=== PATIENT | male | born 1945 | race Caucasian/White ===

== ENCOUNTER 2020-08-17 07:05 | Outpatient (REF) | payer MEDICARE, OTHER, SELFPAY ==
[2020-08-17 07:53] LABS: MANUAL DIFF FLAG NO
[2020-08-17 08:09] LABS: Basophils Percent Auto 0.6 % (0-2); Eosinophils Absolute Auto 0.4 X10*3/uL (0.0-0.4); Eosinophils Percent Auto 6.3 % (0-4); Hematocrit 42.8 % (42-52); Hemoglobin 14.1 g/dl (14.0-18.0); Imm Gran Abs Auto 0.02 X10*3/uL (0.00-0.03); Imm Gran Pct Auto 0.3 % (0.0-0.4); Lymphocytes Absolute Auto 2.3 X10*3/uL (1.2-4.9); Lymphocytes Percent Auto 33.9 % (20-40); Mean Corpuscular HGB Conc 32.9 g/dl (31.0-36.0); Mean Corpuscular Hemoglobin 28.3 pg (27.0-33.0); Mean Corpuscular Volume 85.8 fL (80-98); Mean Platelet Volume 9.2 fL (9.4-12.4); Monocytes Absolute Auto 0.6 X10*3/uL (0.1-1.2); Monocytes Percent Auto 9.4 % (2-11); Neutrophils Absolute Auto 3.4 X10*3/uL (2.0-8.3); Neutrophils Percent Auto 49.5 % (45-73); Platelet Count 198 X10*3/uL (160-400); Red Blood Count 4.99 X10*6/uL (4.60-5.80); Red Cell Distribution Width 12.8 % (11.0-16.0); White Blood Count 6.8 X10*3/uL (4.8-10.8)
[2020-08-17 08:34] LABS: Alanine Aminotransferase 28 U/L (0-40); Albumin Level 4.3 g/dL (3.5-5.0); Alkaline Phosphatase 45 U/L (39-117); Anion Gap 13 (12-20); Aspartate Amino Transferase 22 U/L (5-37); Bilirubin Total 0.4 mg/dL (0.0-1.0); Blood Urea Nitrogen 53 mg/dL (9-16); Calcium 9.2 mg/dL (8.4-10.2); Carbon Dioxide 21 mmol/L (22-29); Chloride 111 mmol/L (96-108); Cholesterol 192 mg/dL; Estimated Glomerular Filt Rate 28; Glucose Fasting 101 mg/dL (60-99); HDL Cholesterol 57 mg/dL; LDL Cholesterol Calculated 94 mg/dl; Sodium 140 mmol/L (135-145); Total Protein 6.8 g/dL (6.5-8.0); Triglycerides 208 mg/dL
== END 2020-08-17 07:06 | disposition home or self-care (01) ==
LOC: HO.LAB 07:05
PROVIDERS: PCP Internal Medicine; Visit Provider Internal Medicine
DX: Z00.00 Encounter for general adult medical examination without abnormal findings (principal); E11.9 Type 2 diabetes mellitus without complications
CPT/HCPCS: 36415; 80053; 80061; 85025

== ENCOUNTER 2020-12-21 10:04 | Outpatient (REF) | payer MEDICARE, OTHER, SELFPAY ==
--- NOTE | ~2020-12-21 | US_ITS ---
EXAMINATION: US RETROPERITONEAL LIMITED (RENAL ONLY) CLINICAL INFORMATION: Chronic kidney disease, stage 3. COMPARISON: Subsequent CT abdomen/pelvis dated 12/23/2020. TECHNIQUE: Real-time imaging of the kidneys. FINDINGS: RIGHT KIDNEY: 9.2 x 5.9 x 5.2 cm (SAG x AP x TRV). The kidney is normal in size, contour, and echogenicity. Renal cortical thickness is normal. No hydronephrosis. Lower pole echogenic focus measuring 0.4 cm. No stone on the subsequent CT. This likely represents a vascular artifact. No obstructing renal stone. Simple upper pole cyst measuring 2.4 cm. Findings are not clinically significant and no follow up imaging is recommended. LEFT KIDNEY: 9.4 x 5.6 x 4.5 cm (SAG x AP x TRV). The kidney is normal in size, contour, and echogenicity. Renal cortical thickness is normal. No renal calculi or hydronephrosis. Multiple, simple cysts measuring up to 3.5 cm. The exophytic mid/upper pole cyst seen on the subsequent CT appears simple on ultrasound. Findings are not clinically significant and no follow up imaging is recommended. US/US renal BI IMPRESSION: Simple bilateral renal cysts. This includes an exophytic left upper/mid pole cyst which appears simple on ultrasound. Findings are not clinically significant and no follow up imaging is recommended. No renal stone or hydronephrosis.
[2020-12-21 11:18] LABS: Hematocrit 38.2 % (42-52); Hemoglobin 13.2 g/dl (14.0-18.0); Mean Corpuscular HGB Conc 34.6 g/dl (31.0-36.0); Mean Corpuscular Hemoglobin 28.9 pg (27.0-33.0); Mean Corpuscular Volume 83.6 fL (80-98); Mean Platelet Volume 8.5 fL (9.4-12.4); Platelet Count 243 X10*3/uL (160-400); Red Blood Count 4.57 X10*6/uL (4.60-5.80); Red Cell Distribution Width 11.9 % (11.0-16.0); White Blood Count 7.1 X10*3/uL (4.8-10.8)
[2020-12-21 12:12] LABS: Anion Gap 15 (12-20); Blood Urea Nitrogen 27 mg/dL (9-16); Calcium 9.6 mg/dL (8.4-10.2); Carbon Dioxide 20 mmol/L (22-29); Chloride 109 mmol/L (96-108); Estimated Glomerular Filt Rate 47; Glucose Random 101 mg/dL (60-115); Potassium 4.5 mmol/L (3.3-5.1); Sodium 139 mmol/L (135-145)
[2020-12-21 12:38] LABS: Cholesterol 158 mg/dL; HDL Cholesterol 50 mg/dL; LDL Cholesterol Calculated 76 mg/dl; Triglycerides 164 mg/dL
[2020-12-21 14:58] LABS: Creatinine Urine 39.98 mg/dL; Total Protein Urine Random < 7 mg/dL (<12)
[2020-12-22 16:46] LABS: Calcium (PTHI) 9.6 mg/dL (8.6-10.3); PTHI 40 pg/mL (14-64)
== END 2020-12-21 10:05 | disposition home or self-care (01) ==
LOC: HO.US 10:04
PROVIDERS: PCP Internal Medicine; Visit Provider Internal Medicine Hypertension Specialist
DX: N18.31 Chronic kidney disease, stage 3a (principal); E11.22 Type 2 diabetes mellitus with diabetic chronic kidney disease
CPT/HCPCS: 36415; 76775; 80048; 80061; 83970; 84156; 85027

== ENCOUNTER 2020-12-23 15:56 | Emergency (ER) | payer MEDICARE, OTHER, SELFPAY ==
--- NOTE | ~2020-12-23 | CT_ITS ---
EXAMINATION: CT ABDOMEN AND PELVIS WITHOUT CONTRAST CLINICAL INFORMATION: Abdominal pain, bloody diarrhea. COMPARISON: No similar priors. TECHNIQUE: Multidetector volumetric imaging was performed from the superior aspect of the liver through the pubic symphysis. Sagittal and coronal reformatted images were obtained on the technologist's workstation. This CT examination was performed using dose optimization techniques as appropriate, variously including the following: *Automated exposure control *Adjustment of mA and/or kV according to patient size (this includes techniques or standardized protocols for targeted exams where dose is matched to indication/reason for exam; i.e. extremities or head) *Use of iterative reconstruction technique DLP: 416 mGy-cm FINDINGS: LUNG BASES: Scarring adjacent to the major fissure within the right middle lobe (image 5 of series 4). No focal consolidation or pleural effusion. LIVER, GALLBLADDER, AND BILIARY TREE: The liver is normal in size, shape, and attenuation. No focal hepatic lesion or biliary ductal dilatation is present. The gallbladder is unremarkable with no evidence of radiopaque gallstones, gallbladder wall thickening, or obvious pericholecystic inflammatory changes. PANCREAS: Unremarkable. SPLEEN: Unremarkable. ADRENAL GLANDS: Unremarkable. KIDNEYS AND URETERS: The kidneys are normal in size, shape and attenuation. There are multiple bilateral simple appearing cysts, for instance the largest in the upper pole of the right kidney measuring up to 2.2 cm and in the mid to lower pole of left kidney measuring up to 3.6 cm. Exophytically from the anterior surface of the upper pole of the left kidney there is a homogeneously hyperattenuating lesion measuring up to 1 cm (image 29 of series 3) which is almost certainly account representative of a cyst with proteinaceous/hemorrhagic debris. There is mild bilateral perinephric fat stranding with perirenal fat hypertrophy. No nephrolithiasis or hydronephrosis. Renal vascular calcifications are identified. BLADDER: Unremarkable. GASTROINTESTINAL TRACT: Small hiatal hernia. The stomach and the small bowel are nondilated. Normal appendix. There is wall thickening and inflammatory changes in the sigmoid colon around several diverticuli, most consistent with acute diverticulitis. No free air or drainable collection. No bowel obstruction. ABDOMINAL WALL: Tiny fat-containing umbilical and bilateral inguinal hernias. LYMPH NODES: No lymphadenopathy by size criteria. There are a few tiny retroperitoneal nodules measuring up to 4 mm (images 39 and 41 of series 3) of uncertain significance. VASCULAR: Scattered atherosclerotic disease of the abdominal aorta and its branches. The infrarenal abdominal aorta measures up to 2.3 cm in maximum diameter. PELVIC VISCERA: The prostate is mildly enlarged. OSSEOUS STRUCTURES: No acute or aggressive osseous abnormalities. Multilevel thoracolumbar spondylosis. CT/CT abdomen pelvis wo con IMPRESSION: Acute uncomplicated sigmoid diverticulitis. No nephrolithiasis or hydronephrosis. In the upper pole of the left kidney there is a homogeneously hyperattenuating exophytic lesion measuring 1 cm which is almost certainly a simple cyst with proteinaceous/hemorrhagic content. However, to definitely ensure its benign etiology, recommend interval imaging to ensure stability. There are multiple other simple renal cysts which do not require further workup.
[2020-12-23 16:13] VITALS: BP 150/69; PULSE 88; RESP 18; TEMP 36.8; O2SAT 95; BMI 25.0
[2020-12-23 19:11] LABS: MANUAL DIFF FLAG NO
[2020-12-23 19:13] LABS: Basophils Percent Auto 0.3 % (0-2); Eosinophils Absolute Auto 0.1 X10*3/uL (0.0-0.4); Eosinophils Percent Auto 0.6 % (0-4); Hematocrit 40.9 % (42-52); Hemoglobin 14.1 g/dl (14.0-18.0); Imm Gran Abs Auto 0.03 X10*3/uL (0.00-0.03); Imm Gran Pct Auto 0.3 % (0.0-0.4); Lymphocytes Absolute Auto 2.2 X10*3/uL (1.2-4.9); Lymphocytes Percent Auto 21.3 % (20-40); Mean Corpuscular HGB Conc 34.5 g/dl (31.0-36.0); Mean Corpuscular Hemoglobin 28.9 pg (27.0-33.0); Mean Corpuscular Volume 83.8 fL (80-98); Mean Platelet Volume 8.8 fL (9.4-12.4); Monocytes Absolute Auto 0.9 X10*3/uL (0.1-1.2); Monocytes Percent Auto 8.2 % (2-11); Neutrophils Absolute Auto 7.2 X10*3/uL (2.0-8.3); Neutrophils Percent Auto 69.3 % (45-73); Platelet Count 269 X10*3/uL (160-400); Red Blood Count 4.88 X10*6/uL (4.60-5.80); White Blood Count 10.4 X10*3/uL (4.8-10.8)
--- NOTE | 2020-12-23 19:24 | ED_ITS ---
HPI - General Adult General Chief complaint: General Medical Stated complaint: Blood in stool Time Seen by Provider: 12/23/20 19:23 History of Present Illness HPI narrative: Patient is 75 years old with a history of having multiple episodes of diarrhea. Patient's initial diarrhea was brown in color. The last set of 3 episodes patient noted small amount of blood. Patient from home. S saida arrival in the emergency department 3 hours ago patient is not having any diarrhea anymore. No fever no chills. No abdominal pain. No history of abdominal surgery. No chest pain. Positive nausea associated with the symptoms. No cough no congestion or upper respiratory symptoms. Patient from home. Received his coronavirus vaccine. No history of diverticulitis. No history of being on Motrin or Aleve. No NSAIDs. No alcohol use. No new medication. Not on blood thinners. Related Data Home Medications Medication Instructions Recorded Confirmed aspirin 81 mg tablet,delayed 81 mg PO DAILY 12/30/19 09/01/20 release (Adult Low Dose Aspirin) omega-3 fatty acids 1,000 mg 1,000 mg PO DAILY 12/30/19 09/01/20 capsule ranitidine HCl 150 mg tablet 150 mg PO BID 12/30/19 09/01/20 Previous Rx's Medication Instructions Recorded cholestyramine (with sugar) 4 gram 4 g PO DAILY #180 ea 01/18/20 powder for susp in a packet cimetidine 200 mg tablet 200 mg PO BID #180 tab 08/09/20 metoprolol succinate 25 mg 25 mg PO DAILY #90 tab 08/09/20 tablet,extended release 24 hr amlodipine 5 mg tablet 5 mg PO DAILY #90 tab 08/30/20 rosuvastatin 20 mg tablet 30 mg PO DAILY #90 tab 09/07/20 lisinopril 20 1 tab PO BID #180 tab 12/05/20 mg-hydrochlorothiazide 12.5 mg tablet amoxicillin 875 mg-potassium 1 tab PO BID 10 Days #20 tab 12/23/20 clavulanate 125 mg tablet (Augmentin) ondansetron HCl 4 mg tablet 4 mg PO Q8H PRN #10 tab 12/23/20 (Zofran) Allergies Allergy/AdvReac Type Severity Reaction Status Date / Time ezetimibe [Zetia] AdvReac Unknown muscle pain Verified 12/23/20 16:13 niacin AdvReac Unknown flushing Verified 12/23/20 16:13 Review of Systems Review of Systems: No fever no chills no cough no congestion or Upper respiratory symptoms no diaphoresis All systems reviewed otherwise negative PMFSH Past Medical History Medical History (Updated 12/23/20 @ 21:20 by Fauzia Molina MD) COVID-19 Hyperlipidemia Hypertension Surgical History H/O carotid endarterectomy Family History Family History Father Heart problem Mother Heart problem Brother No problems noted. Son No problems noted. Daughter No problems noted. Daughter No problems noted. Daughter No problems noted. Social History Social History Housing: House Alcohol intake: current Alcohol intake frequency: a few times a week Patient Tobacco Use Status: Former Tobacco user Tobacco use type: Cigarette Second Hand Smoke Exposure: No Advance Directives: No Advance Directives Information Provided: No service: No Current occupational status: retired Physical Exam Vital Signs: Vital Signs: Last Vital Signs Temp 98.2 F 12/23/20 20:01 Pulse 81 12/23/20 20:01 Resp 15 12/23/20 20:01 BP 130/72 12/23/20 20:01 Pulse Ox 96 12/23/20 20:01 Body Mass Index 25.0 Appearance: Alert. Oriented X3. No acute distress. Eyes: Pupils equal, round and reactive to light. ENT: Pharynx normal. Neck: Normal inspection. Neck supple. No lymph nodes noted. No crepitus CVS: Normal heart rate and rhythm. Pulses normal. Normal S1 and S2 Respiratory: No respiratory distress. Breath sounds normal. No Wheezing. No rales Abdomen: Soft and nontender. No rigidity. No distention. good BS x4 Rectal exam mucus only. Skin: Skin warm and dry. Normal skin color. Normal skin turgor. Extremities: No lower extremity edema. Neurovascular intact to all extremities. No Lacerations. No Rash Neuro: Oriented X 3. No motor deficit. No sensory deficit. Moving all extermities. No slurred speech Medical Decision Making MDM Narrative Medical decision making narrative: Well-appearing not acute distress. Patient's abdomen is soft nontender. Will check electrolytes. CT scan of the abdomen ordered. CT scan of the abdomen positive for having a left renal cyst. Also evidence for mild diverticulitis. There is no abscess no perforation. Will start patient on Augmentin. Have patient follow-up on an outpatient basis. Currently in stable condition. Patient's white count is 10.4. Hemoglobin is 14. BUN and creatinine is baseline at 26 and 1.76. In stable condition. Lab Data Lab results reviewed: Yes I reviewed the patient's lab results. Result diagrams: 12/23/20 18:58 12/23/20 18:58 Labs: Lab Results 12/23/20 12/23/20 12/23/20 Range/Units 18:58 18:58 20:28 WBC 10.4 (4.8-10.8) X10*3/uL RBC 4.88 (4.60-5.80) X10*6/uL Hgb 14.1 (14.0-18.0) g/dl Hct 40.9 L (42-52) % MCV 83.8 (80-98) fL MCH 28.9 (27.0-33.0) pg MCHC 34.5 (31.0-36.0) g/dl RDW 12.0 (11.0-16.0) % Plt Count 269 (160-400) X10*3/uL MPV 8.8 L (9.4-12.4) fL Immature Gran % (Auto) 0.3 (0.0-0.4) % Neut % (Auto) 69.3 (45-73) % Lymph % (Auto) 21.3 (20-40) % Campbell % (Auto) 8.2 (2-11) % Eos % (Auto) 0.6 (0-4) % Baso % (Auto) 0.3 (0-2) % Lymph # (Auto) 2.2 (1.2-4.9) X10*3/uL Campbell # (Auto) 0.9 (0.1-1.2) X10*3/uL Eos # (Auto) 0.1 (0.0-0.4) X10*3/uL Baso # (Auto) 0.0 (0.0-0.2) X10*3/uL Abs Immat Gran (auto) 0.03 (0.00-0.03) X10*3/uL Absolute Neuts (auto) 7.2 (2.0-8.3) X10*3/uL Absolute Nucleated RBC 0.000 (0.0-0.012) X10*3/uL Nucleated RBC % (auto) 0.0 (0.0-0.2) /100WBC Sodium 141 (135-145) mmol/L Potassium 4.3 (3.3-5.1) mmol/L Chloride 110 H (96-108) mmol/L Carbon Dioxide 20 L (22-29) mmol/L Anion Gap 15 (12-20) BUN 26 H (9-16) mg/dL Creatinine 1.76 H (0.5-1.4) mg/dL Estim Creat Clear Calc 34.5 Estimated GFR 38 Random Glucose 105 (60-115) mg/dL Calcium 9.7 (8.4-10.2) mg/dL Total Bilirubin 0.8 (0.0-1.0) mg/dL Direct Bilirubin 0.2 (0.0-0.5) mg/dL AST 16 (5-37) U/L ALT 33 (0-40) U/L Alkaline Phosphatase 48 (39-117) U/L Total Protein 7.5 (6.5-8.0) g/dL Albumin 4.7 (3.5-5.0) g/dL Lipase 31 (8-78) U/L Stool Occult Blood POSITIVE (NEGATIVE) Discharge Plan Discharge Clinical Impression: Renal cyst, Diverticulitis Patient Disposition: Home, Self-Care Instructions: Diverticulitis (ED), Diverticulitis Diet (ED), Kidney Cyst (ED) Additional Instructions: A possible kidney cyst versus mass was noted on your CT scan. Please closely follow-up with your doctor on outpatient basis. Small risk of malignancy still exists. Prescriptions: New amoxicillin-pot clavulanate [Augmentin] 875-125 mg tablet 1 tab PO BID 10 Days Qty: 20 RF: 0 ondansetron HCl [Zofran] 4 mg tablet 4 mg PO Q8H PRN (Reason: nausea and vomiting) Qty: 10 RF: 0 No Action cholestyramine (with sugar) 4 gram powder in packet 4 g PO DAILY Qty: 180 RF: 8 metoprolol succinate 25 mg tablet extended release 24 hr 25 mg PO DAILY Qty: 90 RF: 8 cimetidine 200 mg tablet 200 mg PO BID Qty: 180 RF: 8 amlodipine 5 mg tablet 5 mg PO DAILY Qty: 90 RF: 8 rosuvastatin 20 mg tablet 30 mg PO DAILY Qty: 90 RF: 8 lisinopril-hydrochlorothiazide 20-12.5 mg tablet 1 tab PO BID Qty: 180 RF: 8 ranitidine HCl 150 mg tablet 150 mg PO BID RF: 0 omega-3 fatty acids 1,000 mg capsule 1,000 mg PO DAILY RF: 0 aspirin [Adult Low Dose Aspirin] 81 mg tablet,delayed release (DR/EC) 81 mg PO DAILY RF: 0 Referrals: Fransisco Hodges MD [Primary Care Provider] - 2 days
[2020-12-23 19:25] LABS: Anion Gap 15 (12-20); Blood Urea Nitrogen 26 mg/dL (9-16); Calcium 9.7 mg/dL (8.4-10.2); Carbon Dioxide 20 mmol/L (22-29); Chloride 110 mmol/L (96-108); Creatinine Clr Calc Pharmacy 34.5; Estimated Glomerular Filt Rate 38; Glucose Random 105 mg/dL (60-115); Potassium 4.3 mmol/L (3.3-5.1); Sodium 141 mmol/L (135-145)
[2020-12-23 19:44] LABS: Alanine Aminotransferase 33 U/L (0-40); Albumin Level 4.7 g/dL (3.5-5.0); Alkaline Phosphatase 48 U/L (39-117); Aspartate Amino Transferase 16 U/L (5-37); Bilirubin Direct 0.2 mg/dL (0.0-0.5); Bilirubin Total 0.8 mg/dL (0.0-1.0); Lipase 31 U/L (8-78); Total Protein 7.5 g/dL (6.5-8.0)
[2020-12-23 20:01] VITALS: BP 130/72; PULSE 81; RESP 15; TEMP 36.8; O2SAT 96
[2020-12-23] MEDS: 0.9 % Sodium Chloride 1,000 ML 999 ML IV (20:06)
[2020-12-23 20:38] LABS: OBS Int Ctl Valid YES; OBS1 POSITIVE (NEGATIVE)
--- NOTE | 2020-12-23 21:29 | PC.NURSE ---
Pt alert and oriented x4, calm and cooperative. Pt denies pain. Pt educated on results and discharge teaching. Pt and stated an understanding. Pt states ready for dc. Pt ambulated and steady on his feet. IV removed. Vitals stable.
[2020-12-23] MEDS: Amoxicillin/Potassium Clav 875 MG TABLET PO (21:39)
== END 2020-12-23 21:43 | disposition home or self-care (01) ==
PROVIDERS: Emergency Provider Emergency Medicine Emergency Medical Services; PCP Internal Medicine
DX: K57.32 Diverticulitis of large intestine without perforation or abscess without bleeding (principal); N28.1 Cyst of kidney, acquired; Z87.891 Personal history of nicotine dependence; Z71.6 Tobacco abuse counseling; Z79.899 Other long term (current) drug therapy
CPT/HCPCS: 36415; 74176; 80048; 80076; 82272; 83690; 85025; 96360; 99284

== ENCOUNTER 2021-04-04 07:42 | Outpatient (REF) | payer MEDICARE, OTHER, SELFPAY ==
[2021-04-04 07:57] LABS: MANUAL DIFF FLAG NO
[2021-04-04 08:39] LABS: Basophils Percent Auto 0.6 % (0-2); Eosinophils Absolute Auto 0.4 X10*3/uL (0.0-0.4); Eosinophils Percent Auto 5.7 % (0-4); Hematocrit 43.2 % (42.0-52.0); Hemoglobin 14.3 g/dl (14.0-18.0); Imm Gran Abs Auto 0.02 X10*3/uL (0.00-0.03); Imm Gran Pct Auto 0.3 % (0.0-0.4); Lymphocytes Absolute Auto 2.4 X10*3/uL (1.2-4.9); Lymphocytes Percent Auto 36.9 % (20-40); Mean Corpuscular HGB Conc 33.1 g/dl (31.0-36.0); Mean Corpuscular Hemoglobin 28.5 pg (27.0-33.0); Mean Corpuscular Volume 86.2 fL (80.0-98.0); Mean Platelet Volume 9.1 fL (9.4-12.4); Monocytes Absolute Auto 0.6 X10*3/uL (0.1-1.2); Monocytes Percent Auto 9.4 % (2-11); Neutrophils Absolute Auto 3.1 x10*3/uL (2.0-8.3); Neutrophils Percent Auto 47.1 % (45-73); Platelet Count 221 X10*3/uL (160-400); Red Blood Count 5.01 X10*6/uL (4.60-5.80); Red Cell Distribution Width 12.5 % (11.0-16.0); White Blood Count 6.5 X10*3/uL (4.8-10.8)
[2021-04-04 09:01] LABS: Anion Gap 13 (12-20); Blood Urea Nitrogen 35 mg/dL (9-16); Calcium 9.5 mg/dL (8.4-10.2); Carbon Dioxide 25 mmol/L (22-29); Chloride 108 mmol/L (96-108); Estimated Glomerular Filt Rate 37; Potassium 4.2 mmol/L (3.3-5.1); Sodium 142 mmol/L (135-145)
== END 2021-04-04 07:43 | disposition home or self-care (01) ==
LOC: HO.LAB 07:42
PROVIDERS: PCP Internal Medicine; Visit Provider Internal Medicine Hypertension Specialist
DX: N18.32 Chronic kidney disease, stage 3b (principal)
CPT/HCPCS: 36415; 80051; 82310; 82565; 84520; 85025

== ENCOUNTER 2021-08-18 07:15 | Outpatient (REF) | payer MEDICARE, OTHER, SELFPAY ==
[2021-08-18 08:42] LABS: Anion Gap 15 (12-20); Blood Urea Nitrogen 37 mg/dL (9-16); Calcium 9.3 mg/dL (8.4-10.2); Carbon Dioxide 21 mmol/L (22-29); Chloride 110 mmol/L (96-108); Creatinine Clr Calc Pharmacy 31.5; Estimated Glomerular Filt Rate 35; Potassium 4.9 mmol/L (3.3-5.1); Sodium 141 mmol/L (135-145)
== END 2021-08-18 07:16 | disposition home or self-care (01) ==
LOC: HO.LAB 07:15
PROVIDERS: Absent Provider Internal Medicine Hypertension Specialist; PCP Internal Medicine; Visit Provider Internal Medicine
DX: I12.9 Hypertensive chronic kidney disease with stage 1 through stage 4 chronic kidney disease, or unspecified chronic kidney disease (principal); N18.9 Chronic kidney disease, unspecified
CPT/HCPCS: 36415; 80051; 82310; 82565; 84100; 84520

== ENCOUNTER 2021-12-28 07:00 | Outpatient (REF) | payer MEDICARE, OTHER, SELFPAY ==
[2021-12-28 09:52] LABS: Cholesterol 181 mg/dL; HDL Cholesterol 59 mg/dL; LDL Cholesterol Calculated 89 mg/dl; Triglycerides 168 mg/dL
[2021-12-28 15:31] LABS: Hematocrit 39.2 % (42.0-52.0); Hemoglobin 13.7 g/dl (14.0-18.0); Mean Corpuscular HGB Conc 34.9 g/dl (31.0-36.0); Mean Corpuscular Hemoglobin 29.5 pg (27.0-33.0); Mean Corpuscular Volume 84.3 fL (80.0-98.0); Platelet Count 208 X10*3/uL (160-400); Red Blood Count 4.65 X10*6/uL (4.60-5.80); Red Cell Distribution Width 12.3 % (11.0-16.0); White Blood Count 7.6 X10*3/uL (4.8-10.8)
[2021-12-28 15:59] LABS: Creatinine Urine 55.97 mg/dL; Microalbum/Creatinine Ratio Ur 33.9 ug/mg cr
[2021-12-28 16:02] LABS: Alanine Aminotransferase 30 U/L (0-40); Albumin Level 4.4 g/dL (3.5-5.0); Alkaline Phosphatase 44 U/L (39-117); Anion Gap 16 (12-20); Aspartate Amino Transferase 22 U/L (5-37); Bilirubin Total 0.5 mg/dL (0.0-1.0); Blood Urea Nitrogen 29 mg/dL (9-16); Carbon Dioxide 21 mmol/L (22-29); Chloride 108 mmol/L (96-108); Estimated Glomerular Filt Rate 40; Glucose Random 111 mg/dL (60-115); Potassium 4.4 mmol/L (3.3-5.1); Sodium 141 mmol/L (135-145); Total Protein 6.8 g/dL (6.5-8.0)
== END 2021-12-28 07:01 | disposition home or self-care (01) ==
LOC: HO.LAB 07:00
PROVIDERS: Absent Provider Internal Medicine Hypertension Specialist; PCP Internal Medicine; Visit Provider Internal Medicine
DX: E78.5 Hyperlipidemia, unspecified (principal); N18.32 Chronic kidney disease, stage 3b
CPT/HCPCS: 36415; 80053; 80061; 82043; 85027

== ENCOUNTER 2022-07-13 08:33 | Outpatient (REF) | payer MEDICARE, OTHER, SELFPAY ==
[2022-07-13 09:53] LABS: Anion Gap 15 (12-20); Blood Urea Nitrogen 39 mg/dL (9-16); Carbon Dioxide 21 mmol/L (22-29); Chloride 111 mmol/L (96-108); Cholesterol 169 mg/dL; Estimated Glomerular Filt Rate 36; Glucose Random 96 mg/dL (60-115); HDL Cholesterol 53 mg/dL; LDL Cholesterol Calculated 87 mg/dl; Potassium 4.5 mmol/L (3.3-5.1); Sodium 142 mmol/L (135-145); Triglycerides 148 mg/dL
== END 2022-07-13 08:34 | disposition home or self-care (01) ==
LOC: HO.LAB 08:33
PROVIDERS: Internal Medicine Hypertension Specialist; Visit Provider Internal Medicine
DX: E78.5 Hyperlipidemia, unspecified (principal); N18.32 Chronic kidney disease, stage 3b
CPT/HCPCS: 36415; 80048; 80061

== ENCOUNTER 2022-11-24 08:15 | Outpatient (REF) | payer MEDICARE, OTHER, SELFPAY ==
[2022-11-24 09:29] LABS: Cholesterol 183 mg/dL (<200); HDL Cholesterol 59 mg/dL (>40); LDL Cholesterol Calculated 91 mg/dL (<100); Triglycerides 168 mg/dL (<150)
== END 2022-11-24 08:16 | disposition home or self-care (01) ==
LOC: HO.LAB 08:15
PROVIDERS: PCP Internal Medicine; Visit Provider Internal Medicine
DX: E78.5 Hyperlipidemia, unspecified (principal)
CPT/HCPCS: 36415; 80061

== ENCOUNTER 2022-11-28 12:44 | Outpatient (AMB) | payer MEDICARE, OTHER, SELFPAY ==
[2022-11-28 12:46] VITALS: BP 142/60; PULSE 55; O2SAT 97; BMI 25.4
--- NOTE | 2022-11-28 12:46 | A.OFFPC_ITS ---
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 Accompanied by: Self / Same As Patient Allergies ezetimibe [Zetia] Adverse Reaction (Unknown, Verified 11/28/22 12:46) muscle pain niacin Adverse Reaction (Unknown, Verified 11/28/22 12:46) flushing Medication List - Last Reconciled 11/28/22 by Fransisco Hodges MD amlodipine 5 mg PO DAILY aspirin (Adult Low Dose Aspirin) 81 mg PO DAILY cholestyramine (with sugar) 4 gram 4 grams PO DAILY cimetidine 200 mg PO BID lisinopril-hydrochlorothiazide 20-12.5 mg 1 tab PO BID metoprolol succinate ER 25 mg PO DAILY omega-3 fatty acids 1,000 mg PO DAILY ranitidine HCl 150 mg PO BID rosuvastatin 30 mg (1.5 x 20 mg) PO DAILY Tobacco use date assessed: 04/09/22 Fall risk assessment: No Falls in past year Last assessed Fall Risk: 11/28/22 Dental Screening Dental Screen Date: 11/28/22 Did you have a dental visit in the last 12 months?: No Did you have a dental problem in the last 6 months where you did not have access to dental care?: No Was dental information given to patient?: Patient has dentist HPI 4mth f/u HPI Details HTN and hyperlip on rx; doing well; compliant [facility] Medical History COVID-19 Hypertension Hyperlipidemia Surgical History H/O carotid endarterectomy Family History Father Heart problem Mother Heart problem Brother No problems noted. Son No problems noted. Daughter No problems noted. Daughter No problems noted. Daughter No problems noted. Social History Housing: House Alcohol intake: current Alcohol intake frequency: a few times a week Patient Tobacco Use Status: Former Tobacco user Tobacco use type: Cigarette e-Cigarette/Vaping Use: Never Used Second Hand Smoke Exposure: No service: No Current occupational status: retired Cognitive needs: No Hearing needs: No Vision needs: Yes (reading glasses) Questionnaire PHQ-9 Over the last 2 weeks, how often have you been bothered by any of the following problems? 1. Little interest or pleasure in doing things: not at all 2. Feeling down, depressed, or hopeless: not at all 3. Trouble falling or staying asleep, or sleeping too much: not at all 4. Feeling tired or having little energy: not at all 5. Poor appetite or overeating: not at all 6. Feeling bad about yourself - or that you are a failure or have let yourself or your family down: not at all 7. Trouble concentrating on things, such as reading the newspaper or watching television: not at all 8. Moving or speaking so slowly that other people could have noticed. Or the opposite - being so fidgety or restless that you have been moving around a lot more than usual: not at all 9. Thoughts that you would be better off or of hurting yourself in some way: not at all Total score: 0 Depression Screening Interpretation: Negative 41497 - PHQ-9 Billing: Yes Source: Developed by Drs. Denys Suero, Francia Shelton, Robinson Phillips and colleagues, with an educational ramiro from [employer]. Thrive Questionnaire Date Thrive assessed: 08/01/22 AUDIT C Alcohol Use Questionnaire (AUDIT-C) Score Reviewed/Action Taken: Yes GRACE-7 AMB Questionnaire GRACE-7 Date GRACE - 7 assessed: 08/01/22 Source: Developed by Drs. Denys Suero, Robinson Johnson and colleagues, with an educational ramiro from [employer]. Review of Systems Const Denies chills, Denies headache(s) and Denies weight loss ENT Denies headache(s) Card Denies chest pain, Denies syncope, Denies irregular heart rhythm and Denies dyspnea Resp Denies chest congestion, Denies cough and Denies dyspnea GI Denies abdominal pain, Denies change in stool character, Denies nausea and Denies vomiting Musc Denies deformity and Denies joint swelling Neuro Denies syncope and Denies headache(s) Physical exam (Primary Care) Vital Signs: Last Vital Signs Pulse 55 11/28/22 12:46 BP 142/60 H 11/28/22 12:46 Pulse Ox 97 11/28/22 12:46 Oxygen Delivery Method Room Air 11/28/22 12:46 BMI result Body Mass Index 25.4 Tobacco/Smoking Status: Tobacco use Status Tobacco use date assessed 04/09/22 11/28/22 12:50 Patient Tobacco Use Status Former Tobacco user 11/28/22 12:50 Tobacco use type Cigarette 11/28/22 12:50 e-Cigarette/Vaping Use Never Used 11/28/22 12:50 PHQ-9: PHQ-9 Score PHQ-9: Total score 0 11/28/22 12:50 Depression Screening Interpretation: Negative Thrive Assessment: Date of Thrive Assessment Date Thrive assessed 08/01/22 11/28/22 12:50 Const General: cooperative, comfortable, no acute distress and alert Neck Neck: Yes no lymphadenopathy Thyroid: Thyroid normal Resp Effort & Inspection: normal respiratory effort Auscultation: clear to auscultation bilaterally Percussion: percussion normal Cardio Jugular venous distension: no JVD Palpation: normal PMI Rate: regular rate Rhythm: regular rhythm Heart sounds: S1 normal heart sound present and S2 normal heart sound present GI Inspection: Yes normal to inspection Palpation (GI): No hepatosplenomegaly present Skin General skin exam: no rashes or lesions noted Extrem General: Yes no clubbing, cyanosis or edema Assessment and Plan Assessment & Plan (1) Hypertension: Code(s): I10 - Essential (primary) hypertension Plan: stable; same rx (2) Hyperlipidemia: Code(s): E78.5 - Hyperlipidemia, unspecified Plan: stable; same rx Orders: Orders Comprehensive [place]. Panel Fast Today N28.9 - Disorder of kidney and ureter, unspecified Lipid Panel Today E78.5 - Hyperlipidemia, unspecified Complete Blood Count Auto Diff Today D64.9 - Anemia, unspecified Coding Level of Care Code Est Pt Level 3 (30690) Diagnoses Hypertension I10 Hyperlipidemia E78.5
== END 2022-11-28 12:58 | disposition home or self-care (01) ==
PROVIDERS: PCP Internal Medicine; Visit Provider Internal Medicine
DX: I10 Essential (primary) hypertension (principal); E78.5 Hyperlipidemia, unspecified
CPT/HCPCS: 99213

== ENCOUNTER 2023-01-23 08:03 | Outpatient (REF) | payer MEDICARE, OTHER, SELFPAY ==
[2023-01-23 10:55] LABS: Anion Gap 14 (12-20); Blood Urea Nitrogen 30 mg/dL (9-16); Calcium 9.2 mg/dL (8.4-10.2); Carbon Dioxide 25 mmol/L (22-29); Chloride 108 mmol/L (96-108); Estimated Glomerular Filt Rate 39; Glucose Random 89 mg/dL (60-115); Potassium 4.5 mmol/L (3.3-5.1); Sodium 142 mmol/L (135-145)
[2023-01-23 11:07] LABS: Creatinine Urine 107.78 mg/dL; Total Protein Urine Random < 7 mg/dL (<12)
[2023-01-25 15:13] LABS: Calcium (PTHI) 8.9 mg/dL (8.6-10.3); PTHI 50 pg/mL (16-77)
== END 2023-01-23 08:04 | disposition home or self-care (01) ==
LOC: HO.LAB 08:03
PROVIDERS: PCP Internal Medicine; Visit Provider Internal Medicine Hypertension Specialist
DX: I12.9 Hypertensive chronic kidney disease with stage 1 through stage 4 chronic kidney disease, or unspecified chronic kidney disease (principal); N18.32 Chronic kidney disease, stage 3b
CPT/HCPCS: 36415; 80048; 82570; 83970; 84156

== ENCOUNTER 2023-05-27 07:26 | Outpatient (REF) | payer MEDICARE, OTHER, SELFPAY ==
[2023-05-27 07:35] LABS: MANUAL DIFF FLAG NO
[2023-05-27 08:03] LABS: Basophils Percent Auto 0.5 % (0-2); Eosinophils Absolute Auto 0.3 X10*3/uL (0.0-0.4); Eosinophils Percent Auto 4.6 % (0-4); Hematocrit 43.3 % (42.0-52.0); Hemoglobin 14.9 g/dl (14.0-18.0); Imm Gran Abs Auto 0.02 X10*3/uL (0.00-0.03); Imm Gran Pct Auto 0.3 % (0.0-0.4); Lymphocytes Absolute Auto 2.6 X10*3/uL (1.2-4.9); Lymphocytes Percent Auto 35.9 % (20-40); Mean Corpuscular HGB Conc 34.4 g/dl (31.0-36.0); Mean Corpuscular Hemoglobin 29.2 pg (27.0-33.0); Mean Corpuscular Volume 84.9 fL (80.0-98.0); Mean Platelet Volume 8.8 fL (9.4-12.4); Monocytes Absolute Auto 0.7 X10*3/uL (0.1-1.2); Monocytes Percent Auto 9.6 % (2-11); Neutrophils Absolute Auto 3.6 x10*3/uL (2.0-8.3); Neutrophils Percent Auto 49.1 % (45-73); Platelet Count 204 X10*3/uL (160-400); Red Cell Distribution Width 12.5 % (11.0-16.0); White Blood Count 7.4 X10*3/uL (4.8-10.8)
[2023-05-27 08:36] LABS: Alanine Aminotransferase 31 U/L (0-40); Albumin Level 4.5 g/dL (3.5-5.0); Alkaline Phosphatase 44 U/L (39-117); Anion Gap 15 (12-20); Aspartate Amino Transferase 21 U/L (5-37); Bilirubin Total 0.5 mg/dL (0.0-1.0); Blood Urea Nitrogen 40 mg/dL (9-16); Calcium 9.5 mg/dL (8.4-10.2); Carbon Dioxide 24 mmol/L (22-29); Chloride 109 mmol/L (96-108); Cholesterol 183 mg/dL (<200); Estimated Glomerular Filt Rate 29; Glucose Fasting 98 mg/dL (60-99); HDL Cholesterol 49 mg/dL (>40); LDL Cholesterol Calculated 87 mg/dL (<100); Sodium 144 mmol/L (135-145); Total Protein 7.5 g/dL (6.5-8.0); Triglycerides 236 mg/dL (<150)
== END 2023-05-27 07:27 | disposition home or self-care (01) ==
LOC: HO.LAB 07:26
PROVIDERS: PCP Internal Medicine; Visit Provider Internal Medicine
DX: E78.5 Hyperlipidemia, unspecified (principal); N28.9 Disorder of kidney and ureter, unspecified; D64.9 Anemia, unspecified
CPT/HCPCS: 36415; 80053; 80061; 85025

== ENCOUNTER 2023-05-29 08:31 | Outpatient (AMB) | payer MEDICARE, OTHER, SELFPAY ==
[2023-05-29 08:42] VITALS: BP 150/82; PULSE 60; O2SAT 95; BMI 25.5
--- NOTE | 2023-05-29 08:42 | A.OFFPC_ITS ---
Vital Signs 05/29/23 08:42 Height 5 ft 8 in Weight 168 lb BMI 25.5 BP 150/82 H Blood Pressure Location Lt brachial Position Sitting Pulse 60 Pulse Source Pulse Oximeter Pulse Oximetry (%) 95 Oxygen Delivery Method Room Air Intake Visit Reasons: 6mth f/u Front End Alignment Specialist Required: No [employer] Supervisor: Not Required per policy Accompanied by: Self / Same As Patient Allergies ezetimibe [Zetia] Adverse Reaction (Unknown, Verified 05/29/23 08:42) muscle pain niacin Adverse Reaction (Unknown, Verified 05/29/23 08:42) flushing Medication List - Last Reconciled 05/29/23 by Fransisco Hodges MD amlodipine 5 mg PO DAILY aspirin (Adult Low Dose Aspirin) 81 mg PO DAILY cholestyramine (with sugar) 4 gram 4 grams PO DAILY cimetidine 200 mg PO BID lisinopril-hydrochlorothiazide 20-12.5 mg 1 tab PO BID metoprolol succinate ER 25 mg PO DAILY omega-3 fatty acids 1,000 mg PO DAILY ranitidine HCl 150 mg PO BID rosuvastatin 30 mg (1.5 x 20 mg) PO DAILY Tobacco use date assessed: 05/29/23 Fall risk assessment: No Falls in past year Last assessed Fall Risk: 05/29/23 Dental Screening Dental Screen Date: 05/29/23 Did you have a dental visit in the last 12 months?: No Did you have a dental problem in the last 6 months where you did not have access to dental care?: No Was dental information given to patient?: Patient has dentist HPI 6mth f/u HPI Details HTN on Rx; doing well; compliant [facility] Medical History COVID-19 Hypertension Hyperlipidemia Surgical History H/O carotid endarterectomy Family History Father Heart problem Mother Heart problem Brother No problems noted. Son No problems noted. Daughter No problems noted. Daughter No problems noted. Daughter No problems noted. Social History Housing: House Alcohol intake: current Alcohol intake frequency: a few times a week Patient Tobacco Use Status: Former Tobacco user Tobacco use type: Cigarette e-Cigarette/Vaping Use: Never Used Second Hand Smoke Exposure: No service: No Current occupational status: retired Cognitive needs: No Hearing needs: No Vision needs: Yes (reading glasses) Questionnaire PHQ-9 Over the last 2 weeks, how often have you been bothered by any of the following problems? 1. Little interest or pleasure in doing things: not at all 2. Feeling down, depressed, or hopeless: not at all 3. Trouble falling or staying asleep, or sleeping too much: not at all 4. Feeling tired or having little energy: not at all 5. Poor appetite or overeating: not at all 6. Feeling bad about yourself - or that you are a failure or have let yourself or your family down: not at all 7. Trouble concentrating on things, such as reading the newspaper or watching television: not at all 8. Moving or speaking so slowly that other people could have noticed. Or the opposite - being so fidgety or restless that you have been moving around a lot more than usual: not at all 9. Thoughts that you would be better off or of hurting yourself in some way: not at all Total score: 0 Depression Screening Interpretation: Negative Depression Screening Done: Yes 43111 - PHQ-9 Billing: Yes Source: Developed by Drs. Denys Suero, Francia Shelton, Robinson Phillips and colleagues, with an educational ramiro from [employer]. Thrive Questionnaire Date Thrive assessed: 05/29/23 I am a: Patient What is your living situation today?: I have a steady place to live Within the past 12 months, did the food you bought not last and you didn't have the money to get more?: Never true Within the past 12 months, did you worry whether your food would run out before you got money to buy more?: Never true Do you have trouble paying for medicines?: No Do you have trouble getting transportation to medical appointments?: No Do you have trouble paying your heating and electricity bill?: No Do you have trouble taking care of your child, family member or friend?: No Do you have trouble with day-to-day activities such as bathing, preparing meals, shopping, managing finances, etc.?: No Are you currently unemployed and looking for a job?: No Are you interested in more education?: No Please select the resources that you would like help with: None THRIVE Score: 0 AUDIT C Alcohol Use Questionnaire (AUDIT-C) 1. How often do you have a drink containing alcohol?: Never Total Score: 0 Score Reviewed/Action Taken: Yes GRACE-7 AMB Questionnaire GRACE-7 Date GRACE - 7 assessed: 05/29/23 Feeling nervous, anxious, or on edge: 0 = Not at all Not being able to stop or control worryin = Not at all Worrying too much about different things: 0 = Not at all Trouble relaxin = Not at all Being so restless that it is hard to sit still: 0 = Not at all Becoming easily annoyed or irritable: 0 = Not at all Feeling afraid as if something awful might happen: 0 = Not at all Total GRACE-7 score (0-4 normal; 5-9 mild; 10-14 moderate; 15-21 severe): 0 Source: Developed by Drs. Denys Suero, Francia Shelton, Robinson Phillips and colleagues, with an educational ramiro from [employer]. Review of Systems Const Denies chills, Denies headache(s) and Denies weight loss ENT Denies headache(s) Card Denies chest pain, Denies syncope, Denies irregular heart rhythm and Denies dyspnea Resp Denies chest congestion, Denies cough and Denies dyspnea GI Denies abdominal pain, Denies change in stool character, Denies nausea and Denies vomiting Musc Denies deformity and Denies joint swelling Neuro Denies syncope and Denies headache(s) Physical exam (Primary Care) Vital Signs: Last Vital Signs Pulse 60 05/29/23 08:42 BP 150/82 H 05/29/23 08:42 Pulse Ox 95 05/29/23 08:42 Oxygen Delivery Method Room Air 05/29/23 08:42 BMI result Body Mass Index 25.5 Tobacco/Smoking Status: Tobacco use Status Tobacco use date assessed 05/29/23 05/29/23 08:43 Patient Tobacco Use Status Former Tobacco user 05/29/23 08:43 Tobacco use type Cigarette 05/29/23 08:43 e-Cigarette/Vaping Use Never Used 03/20/24 08:43 PHQ-9: PHQ-9 Score PHQ-9: Total score 0 05/29/23 08:49 Depression Screening Interpretation: Negative Thrive Assessment: Date of Thrive Assessment Date Thrive assessed 05/29/23 05/29/23 08:43 Const General: cooperative, comfortable, no acute distress and alert Neck Neck: Yes no lymphadenopathy Thyroid: Thyroid normal Resp Effort & Inspection: normal respiratory effort Auscultation: clear to auscultation bilaterally Percussion: percussion normal Cardio Jugular venous distension: no JVD Palpation: normal PMI Rate: regular rate Rhythm: regular rhythm Heart sounds: S1 normal heart sound present and S2 normal heart sound present GI Inspection: Yes normal to inspection Palpation (GI): No hepatosplenomegaly present Skin General skin exam: no rashes or lesions noted Extrem General: Yes no clubbing, cyanosis or edema Assessment and Plan Assessment & Plan (1) Hypertension: Code(s): I10 - Essential (primary) hypertension Plan: stable; same rx Orders: Orders Lipid Panel Today E78.5 - Hyperlipidemia, unspecified Coding Level of Care Code Est Pt Level 3 (29850) Diagnoses Hypertension I10
== END 2023-05-29 09:13 | disposition home or self-care (01) ==
PROVIDERS: PCP Internal Medicine; Visit Provider Internal Medicine
DX: I10 Essential (primary) hypertension (principal)
CPT/HCPCS: 99213

== ENCOUNTER 2023-09-25 07:17 | Outpatient (REF) | payer MEDICARE, OTHER, SELFPAY ==
[2023-09-25 07:45] LABS: MANUAL DIFF FLAG NO
[2023-09-25 08:57] LABS: Basophils Percent Auto 0.5 % (0-2); Eosinophils Absolute Auto 0.3 X10*3/uL (0.0-0.4); Eosinophils Percent Auto 4.4 % (0-4); Hematocrit 43.1 % (42.0-52.0); Hemoglobin 14.4 g/dl (14.0-18.0); Imm Gran Abs Auto 0.02 X10*3/uL (0.00-0.03); Imm Gran Pct Auto 0.3 % (0.0-0.4); Mean Corpuscular HGB Conc 33.4 g/dl (31.0-36.0); Mean Corpuscular Hemoglobin 28.7 pg (27.0-33.0); Mean Corpuscular Volume 85.9 fL (80.0-98.0); Mean Platelet Volume 9.4 fL (9.4-12.4); Monocytes Absolute Auto 0.6 X10*3/uL (0.1-1.2); Monocytes Percent Auto 9.4 % (2-11); Neutrophils Absolute Auto 3.3 x10*3/uL (2.0-8.3); Neutrophils Percent Auto 53.4 % (45-73); Platelet Count 194 X10*3/uL (160-400); Red Blood Count 5.02 X10*6/uL (4.60-5.80); Red Cell Distribution Width 12.6 % (11.0-16.0); White Blood Count 6.2 X10*3/uL (4.8-10.8)
[2023-09-25 09:42] LABS: Albumin Level 4.5 g/dL (3.5-5.0); Anion Gap 13 (12-20); Blood Urea Nitrogen 58 mg/dL (9-16); Calcium 9.5 mg/dL (8.4-10.2); Carbon Dioxide 22 mmol/L (22-29); Chloride 111 mmol/L (96-108); Estimated Glomerular Filt Rate 24; Magnesium 2.6 mg/dL (1.6-2.6); Potassium 4.4 mmol/L (3.3-5.1); Sodium 142 mmol/L (135-145); Vitamin D 25-OH Total 28.4 ng/mL (>30)
[2023-09-25 10:02] LABS: Microalbum/Creatinine Ratio Ur 15.9 ug/mg cr (<30); Protein/Creatinine Ratio, Ur 0.07 (<0.2); Total Protein Urine Random 19 mg/dL (<12)
[2023-09-25 10:37] LABS: Appearance Urine Clear; Color Urine Yellow; Glucose Urine UA Negative (Negative); Leukocyte Esterase Urine Negative (Negative); Nitrite Urine Negative (Negative); Urine Blood Negative (Negative); Urine Ketones Negative (Negative); Urine Protein Trace mg/dL (Neg-Trace)
[2023-09-25 12:53] LABS: Parathyroid Hormone Intact 131.2 pg/mL (8.7-77.1)
== END 2023-09-25 07:18 | disposition home or self-care (01) ==
LOC: HO.LAB 07:17
PROVIDERS: PCP Internal Medicine; Visit Provider Internal Medicine Nephrology
DX: N18.32 Chronic kidney disease, stage 3b (principal); N18.9 Chronic kidney disease, unspecified; I12.9 Hypertensive chronic kidney disease with stage 1 through stage 4 chronic kidney disease, or unspecified chronic kidney disease
CPT/HCPCS: 36415; 80051; 81003; 82040; 82043; 82306; 82310; 82565; 82570; 83735; 83970; 84100; 84156; 84520; 85025

== ENCOUNTER 2023-10-02 08:33 | Outpatient (AMB) | payer MEDICARE, OTHER, SELFPAY ==
[2023-10-02 08:43] VITALS: BP 140/70; PULSE 56; O2SAT 96; BMI 24.9
--- NOTE | 2023-10-02 08:43 | MHC.PC.OV ---
Vital Signs 10/02/23 08:43 Height 5 ft 8 in Weight 164 lb BMI 24.9 BP 140/70 H Blood Pressure Location Lt brachial Position Sitting Pulse 56 Pulse Source Pulse Oximeter Pulse Oximetry (%) 96 Oxygen Delivery Method Room Air Intake Visit Reasons: 4mth f/u Family Law Legal Assistant: Not Required per policy Accompanied by: Self / Same As Patient Allergies ezetimibe [Zetia] Adverse Reaction (Unknown, Verified 10/02/23 08:43) muscle pain niacin Adverse Reaction (Unknown, Verified 10/02/23 08:43) flushing Medication List - Last Reconciled 10/02/23 by Fransisco Hodges MD amlodipine 5 mg PO DAILY aspirin (Adult Low Dose Aspirin) 81 mg PO DAILY cholestyramine (with sugar) 4 gram 4 grams PO DAILY cimetidine 200 mg PO BID lisinopril-hydrochlorothiazide 20-12.5 mg 1 tab PO BID metoprolol succinate ER 25 mg PO DAILY omega-3 fatty acids 1,000 mg PO DAILY ranitidine HCl 150 mg PO BID rosuvastatin 30 mg (1.5 x 20 mg) PO DAILY Tobacco use date assessed: 05/29/23 Fall risk assessment: No Falls in past year Last assessed Fall Risk: 10/02/23 Dental Screening Dental Screen Date: 05/29/23 HPI 4mth f/u HPI Details hypertension on rx; doing well; compliant [facility] Medical History COVID-19 Hypertension Hyperlipidemia Surgical History H/O carotid endarterectomy Family History Father Heart problem Mother Heart problem Brother No problems noted. Son No problems noted. Daughter No problems noted. Daughter No problems noted. Daughter No problems noted. Social History Housing: House Alcohol intake: current Alcohol intake frequency: a few times a week Patient Tobacco Use Status: Former Tobacco user Tobacco use type: Cigarette e-Cigarette/Vaping Use: Never Used Second Hand Smoke Exposure: No service: No Current occupational status: retired Cognitive needs: No Hearing needs: No Vision needs: Yes (reading glasses) Questionnaire Thrive Questionnaire Date Thrive assessed: 05/29/23 GRACE-7 AMB Questionnaire GRACE-7 Date GRACE - 7 assessed: 05/29/23 Source: Developed by Drs. Denys Suero, Francia Shelton, Robinson Phillips and colleagues, with an educational ramiro from [employer]. Review of Systems Const Denies chills, Denies headache(s) and Denies weight loss ENT Denies headache(s) Card Denies chest pain, Denies syncope, Denies irregular heart rhythm and Denies dyspnea Resp Denies chest congestion, Denies cough and Denies dyspnea GI Denies abdominal pain, Denies change in stool character, Denies nausea and Denies vomiting Musc Denies deformity and Denies joint swelling Neuro Denies syncope and Denies headache(s) Physical exam (Primary Care) Vital Signs: Last Vital Signs Pulse 56 10/02/23 08:43 BP 140/70 H 10/02/23 08:43 Pulse Ox 96 10/02/23 08:43 Oxygen Delivery Method Room Air 10/02/23 08:43 BMI result Body Mass Index 24.9 Tobacco/Smoking Status: Tobacco use Status Tobacco use date assessed 05/29/23 10/02/23 08:46 Patient Tobacco Use Status Former Tobacco user 10/02/23 08:46 Tobacco use type Cigarette 10/02/23 08:46 e-Cigarette/Vaping Use Never Used 10/02/23 08:46 Thrive Assessment: Date of Thrive Assessment Date Thrive assessed 05/29/23 10/02/23 08:46 Const General: cooperative, comfortable, no acute distress and alert Neck Neck: Yes no lymphadenopathy Thyroid: Thyroid normal Resp Effort & Inspection: normal respiratory effort Auscultation: clear to auscultation bilaterally Percussion: percussion normal Cardio Jugular venous distension: no JVD Palpation: normal PMI Rate: regular rate Rhythm: regular rhythm Heart sounds: S1 normal heart sound present and S2 normal heart sound present GI Inspection: Yes normal to inspection Palpation (GI): No hepatosplenomegaly present Skin General skin exam: no rashes or lesions noted Extrem General: Yes no clubbing, cyanosis or edema Assessment and Plan Assessment & Plan (1) Hypertension: Code(s): I10 - Essential (primary) hypertension Plan: stable; same rx Orders: Orders US carotid duplex BI Today I65.29 - Occlusion and stenosis of unspecified carotid artery Coding Level of Care Code Est Pt Level 3 (81640) Diagnoses Hypertension I10
== END 2023-10-02 09:05 | disposition home or self-care (01) ==
PROVIDERS: PCP Internal Medicine; Visit Provider Internal Medicine
DX: I10 Essential (primary) hypertension (principal)
CPT/HCPCS: 99213

== ENCOUNTER 2023-11-06 11:32 | Outpatient (REF) | payer MEDICARE, OTHER, SELFPAY ==
[2023-11-06 13:02] LABS: Anion Gap 13 (12-20); Blood Urea Nitrogen 36 mg/dL (9-16); Calcium 9.7 mg/dL (8.4-10.2); Carbon Dioxide 23 mmol/L (22-29); Chloride 110 mmol/L (96-108); Estimated Glomerular Filt Rate 34; Potassium 4.9 mmol/L (3.3-5.1); Sodium 141 mmol/L (135-145)
[2023-11-06 14:07] LABS: Appearance Urine Clear; Color Urine Yellow; Glucose Urine UA Negative (Negative); Leukocyte Esterase Urine Negative (Negative); Nitrite Urine Negative (Negative); Specific Gravity - Urine <= 1.005 (1.005-1.025); Urine Blood Negative (Negative); Urine Ketones Negative (Negative); Urine Protein Negative (Neg-Trace)
[2023-11-06 14:53] LABS: Creatinine Urine 31.33 mg/dL; Microalbum/Creatinine Ratio Ur 35.1 ug/mg cr (<30); Total Protein Urine Random < 7 mg/dL (<12)
== END 2023-11-06 11:33 | disposition home or self-care (01) ==
LOC: HO.LAB 11:32
PROVIDERS: PCP Internal Medicine; Visit Provider Internal Medicine Nephrology
DX: I12.9 Hypertensive chronic kidney disease with stage 1 through stage 4 chronic kidney disease, or unspecified chronic kidney disease (principal); N18.4 Chronic kidney disease, stage 4 (severe)
CPT/HCPCS: 36415; 80051; 81003; 82043; 82310; 82565; 82570; 84156; 84520

== ENCOUNTER 2023-11-13 09:45 | Outpatient (REF) | payer MEDICARE, OTHER, SELFPAY ==
--- NOTE | ~2023-11-13 | US_ITS ---
EXAMINATION: US EXTRACRANIAL CAROTID DUPLEX, BILATERAL CLINICAL INFORMATION: Occlusion and stenosis of bilateral carotid arteries. History of right CEA. COMPARISON: 12/10/2014 TECHNIQUE: Real-time ultrasound and Doppler techniques (integrating B-mode 2-D vascular images, Doppler spectral analysis and color-flow Doppler imaging) were utilized to interrogate the extracranial carotid arteries, the vertebral arteries and proximal subclavian arteries bilaterally. The degree of stenosis is determined by criteria similar to NASCET. FINDINGS: Right Side: 1. There is mild atherosclerotic plaque seen in the bifurcation/proximal ICA region. 2. The common carotid artery PSV proximally is 120 cm/s and distally 86 cm/s. 3. The proximal internal carotid artery velocities are 101 cm/s systolic and 27 cm/s diastolic. 4. The proximal external carotid artery PSV is 72 cm/s. 5. The vertebral artery shows antegrade flow. 6. The subclavian artery waveforms are biphasic. Left Side: 1. There is mild atherosclerotic plaque seen in the bifurcation/proximal ICA region. 2. The common carotid artery PSV proximally is 151 cm/s and distally 73 cm/s. 3. The proximal internal carotid artery velocities are 66 cm/s systolic and 13 cm/s diastolic. 4. The proximal external carotid artery PSV is 77 cm/s. 5. The vertebral artery shows antegrade flow. 6. The subclavian artery waveforms are biphasic. US/US carotid duplex BI IMPRESSION: 1. RIGHT: Minimal, nonhemodynamically significant stenosis of the proximal right internal carotid artery corresponding to a 0-49% stenosis by velocity criteria. 2. LEFT: Minimal, nonhemodynamically significant stenosis of the proximal left internal carotid artery corresponding to a 0-49% stenosis by velocity criteria. 3. No significant change from previous exam 12/10/2014. Electronically signed by: Kan Huang MD 11/14/2023 08:06 AM EDT
== END 2023-11-13 09:46 | disposition home or self-care (01) ==
LOC: HO.US 09:45
PROVIDERS: PCP Internal Medicine; Visit Provider Internal Medicine
DX: I65.23 Occlusion and stenosis of bilateral carotid arteries (principal)
CPT/HCPCS: 93880

== ENCOUNTER 2024-02-28 08:14 | Outpatient (AMB) | payer MEDICARE, OTHER, SELFPAY ==
--- NOTE | 2024-02-28 08:16 | MHC.PC.OV ---
Vital Signs 02/28/24 08:17 Height 5 ft 8 in Weight 165 lb 4 oz BMI 25.1 BP 138/82 Blood Pressure Location Rt brachial Position Sitting Pulse 63 Pulse Source Pulse Oximeter Pulse Oximetry (%) 98 Oxygen Delivery Method Room Air Intake Visit Reasons: OFFICE VISIT Allergies ezetimibe [Zetia] Adverse Reaction (Unknown, Verified 02/28/24 08:19) muscle pain niacin Adverse Reaction (Unknown, Verified 02/28/24 08:19) flushing Medication List - Last Reconciled 02/28/24 by Fransisco Hodges MD amlodipine 5 mg PO DAILY aspirin (Adult Low Dose Aspirin) 81 mg PO DAILY cholestyramine (with sugar) 4 gram 4 grams PO DAILY cimetidine 200 mg PO BID lisinopril-hydrochlorothiazide 20-12.5 mg 1 tab PO BID metoprolol succinate ER 25 mg PO DAILY omega-3 fatty acids 1,000 mg PO DAILY ranitidine HCl 150 mg PO BID rosuvastatin 30 mg (1.5 x 20 mg) PO DAILY Tobacco use date assessed: 02/28/24 Fall risk assessment: No Falls in past year Last assessed Fall Risk: 02/28/24 Dental Screening Dental Screen Date: 02/28/24 Did you have a dental visit in the last 12 months?: No Did you have a dental problem in the last 6 months where you did not have access to dental care?: No Was dental information given to patient?: Patient declined HPI OFFICE VISIT HPI Details HTN on Rx; doing well and compliant [facility] Medical History COVID-19 Hypertension Hyperlipidemia Surgical History H/O carotid endarterectomy Family History Father Heart problem Mother Heart problem Brother No problems noted. Son No problems noted. Daughter No problems noted. Daughter No problems noted. Daughter No problems noted. Social History Housing: House Alcohol intake: current Alcohol intake frequency: a few times a week Patient Tobacco Use Status: Former Tobacco user Tobacco use type: Cigarette e-Cigarette/Vaping Use: Never Used Second Hand Smoke Exposure: No service: No Current occupational status: retired Cognitive needs: No Hearing needs: No Vision needs: Yes (reading glasses) Questionnaire PHQ-9 Over the last 2 weeks, how often have you been bothered by any of the following problems? 1. Little interest or pleasure in doing things: not at all 2. Feeling down, depressed, or hopeless: not at all 3. Trouble falling or staying asleep, or sleeping too much: not at all 4. Feeling tired or having little energy: not at all 5. Poor appetite or overeating: not at all 6. Feeling bad about yourself - or that you are a failure or have let yourself or your family down: not at all 7. Trouble concentrating on things, such as reading the newspaper or watching television: not at all 8. Moving or speaking so slowly that other people could have noticed. Or the opposite - being so fidgety or restless that you have been moving around a lot more than usual: not at all 9. Thoughts that you would be better off or of hurting yourself in some way: not at all Total score: 0 Depression Screening Interpretation: Negative Depression Screening Done: Yes 93009 - PHQ-9 Billing: Yes Source: Developed by Drs. Denys Suero, Francia Shelton, Robinson Phillips and colleagues, with an educational ramiro from [employer]. Thrive Questionnaire Date Thrive assessed: 02/28/24 I am a: Patient What is your living situation today?: I have a steady place to live Within the past 12 months, did the food you bought not last and you didn't have the money to get more?: Never true Within the past 12 months, did you worry whether your food would run out before you got money to buy more?: Never true Do you have trouble paying for medicines?: No Do you have trouble getting transportation to medical appointments?: No Do you have trouble paying your heating and electricity bill?: No Do you have trouble taking care of your child, family member or friend?: No Do you have trouble with day-to-day activities such as bathing, preparing meals, shopping, managing finances, etc.?: No Are you currently unemployed and looking for a job?: No Are you interested in more education?: No Please select the resources that you would like help with: None THRIVE Score: 0 AUDIT C Alcohol Use Questionnaire (AUDIT-C) 1. How often do you have a drink containing alcohol?: 2-3 times a week 2. How many drinks containing alcohol do you have on a typical day when you are drinking?: 1 or 2 3. How often do you have six or more drinks on one occasion?: Never Total Score: 3 Score Reviewed/Action Taken: Yes GRACE-7 AMB Questionnaire GRACE-7 Date GRACE - 7 assessed: 05/29/23 Feeling nervous, anxious, or on edge: 0 = Not at all Not being able to stop or control worryin = Not at all Worrying too much about different things: 0 = Not at all Trouble relaxin = Not at all Being so restless that it is hard to sit still: 0 = Not at all Becoming easily annoyed or irritable: 0 = Not at all Feeling afraid as if something awful might happen: 0 = Not at all Total GRACE-7 score (0-4 normal; 5-9 mild; 10-14 moderate; 15-21 severe): 0 Source: Developed by Drs. Denys Suero, Francia Shelton, Robinson Phillips and colleagues, with an educational ramiro from [employer]. Review of Systems Const Denies chills, Denies headache(s) and Denies weight loss ENT Denies headache(s) Card Denies chest pain, Denies syncope, Denies irregular heart rhythm and Denies dyspnea Resp Denies chest congestion, Denies cough and Denies dyspnea GI Denies abdominal pain, Denies change in stool character, Denies nausea and Denies vomiting Musc Denies deformity and Denies joint swelling Neuro Denies syncope and Denies headache(s) Physical exam (Primary Care) Vital Signs: Last Vital Signs Pulse 63 02/28/24 08:17 BP 138/82 02/28/24 08:17 Pulse Ox 98 02/28/24 08:17 Oxygen Delivery Method Room Air 02/28/24 08:17 BMI result Body Mass Index 25.1 Tobacco/Smoking Status: Tobacco use Status Tobacco use date assessed 02/28/24 02/28/24 08:21 Patient Tobacco Use Status Former Tobacco user 02/28/24 08:17 Tobacco use type Cigarette 02/28/24 08:17 e-Cigarette/Vaping Use Never Used 02/28/24 08:17 PHQ-9: PHQ-9 Score PHQ-9: Total score 0 02/28/24 08:21 Depression Screening Interpretation: Negative Thrive Assessment: Date of Thrive Assessment Date Thrive assessed 02/28/24 02/28/24 08:21 Const General: cooperative, comfortable, no acute distress and alert Neck Neck: Yes no lymphadenopathy Thyroid: Thyroid normal Resp Effort & Inspection: normal respiratory effort Auscultation: clear to auscultation bilaterally Percussion: percussion normal Cardio Jugular venous distension: no JVD Palpation: normal PMI Rate: regular rate Rhythm: regular rhythm Heart sounds: S1 normal heart sound present and S2 normal heart sound present GI Inspection: Yes normal to inspection Palpation (GI): No hepatosplenomegaly present Skin General skin exam: no rashes or lesions noted Extrem General: Yes no clubbing, cyanosis or edema Coding Level of Care Code Est Pt Level 3 (05505) Diagnoses Hypertension I10 Additional Codes PHQ-9 - 32377 - PHQ-9 Billing: Yes ([id number]) Assessment & Plan Assessment & Plan (1) Hypertension: Code(s): I10 - Essential (primary) hypertension Category: Medical Plan: stable; same rx
[2024-02-28 08:17] VITALS: BP 138/82; PULSE 63; O2SAT 98; BMI 25.1
== END 2024-02-28 08:48 | disposition home or self-care (01) ==
PROVIDERS: PCP Internal Medicine; Visit Provider Internal Medicine
DX: I10 Essential (primary) hypertension (principal)

== ENCOUNTER → 2024-02-28 08:14 | Outpatient (BNVA) | payer MEDICARE, OTHER, SELFPAY | PROVIDERS: PCP Internal Medicine; Visit Provider Internal Medicine | DX: I10 Essential (primary) hypertension (principal) | CPT/HCPCS: 96127; 99212 ==

== ENCOUNTER 2024-05-19 11:52 | Outpatient (REF) | payer MEDICARE, OTHER, SELFPAY ==
[2024-05-19 12:42] LABS: Appearance Urine Clear; Color Urine Yellow; Glucose Urine UA Negative (Negative); Leukocyte Esterase Urine Negative (Negative); Nitrite Urine Negative (Negative); Urine Blood Negative (Negative); Urine Ketones Negative (Negative); Urine Protein Negative (Neg-Trace)
[2024-05-19 12:59] LABS: Anion Gap 13 (12-20); Calcium 9.3 mg/dL (8.4-10.2); Carbon Dioxide 19 mmol/L (22-29); Chloride 113 mmol/L (96-108); Estimated Glomerular Filt Rate 38; Potassium 4.4 mmol/L (3.3-5.1); Sodium 141 mmol/L (135-145)
[2024-05-19 13:01] LABS: Creatinine Urine 95.21 mg/dL; Microalbum/Creatinine Ratio Ur 32.5 ug/mg cr (<30); Protein/Creatinine Ratio, Ur 0.08 (<0.2); Total Protein Urine Random 8 mg/dL (<12)
--- OUTSIDE RECORDS SUMMARY | 2024-05-19 14:40 | XMS_ITS | Encounter Summary ---
Author Organization [facility] Address [address] [address] Phone Care Team Providers Care Metal Molder Name Role Phone Fransisco Hodges MD Primary Care Provider [phone] Encounter Details Date Type Department Care Team (Late Contact Info) Description 05/19/2024 Orders Only [facility] [address] [address] Anthony Catalan MD [address] [address] Social History Tobacco Use Types Packs/Day Years Used Date Smoking Tobacco: Former Smokeless Tobacco: Former Alcohol Use Standard Drinks/Week Comments Yes 0 (1 standard drink = 0.6 oz pur e alcohol) Sex and Gender Information Value Date Recorded Sex Assigned at Not on file Legal Sex Male 11:18 AM EDT Gender Identity Not on file Sexual Orientation Not on file documented as of this encounter Plan of Treatment Upcoming Encounters Date Type Department Care Team (Late Contact Info) Description 05/25/2024 3:45 PM EDT Office Visit [facility] [address] [place] [address] Anthony Catalan MD [address] [address] documented as of this encounter Procedures Procedure Name Priority Date/Time Associated Diagnosis Comments PROTEIN / CREATININE RATIO, URINE Routine 05/19/2024 12:30 PM EDT ALBUMIN, URINE, RANDOM Routine 05/19/2024 12:30 PM EDT URINALYSIS Routine 05/19/2024 12:30 PM EDT CREATININE, BLOOD Routine 05/19/2024 12: 06 PM EDT CALCIUM Routine 05/19/2024 12:06 PM EDT ELECTROLYTE PANEL Routine 05/19/2024 12: 06 PM EDT documented in this encounter Results * Protein, Total, Random Urine w/Creatinine (Protein/Creat Ratio) (05/19/2024 12:30 PM EDT) Protein Urine Random 8 <12 mg/dL See order comments Protein/Creatin ine Ratio, Urine 0.08 <0.2 See order comments Comment: The spot urine protein:creatinine ratio may increase to 0.3 during normal . 05/19/2024 12:3 0 PM EDT 05/19/2024 12:30 PM EDT us Anthony Catalan MD LAB URINE ORDERABLES Final Re sult [place] See order comments [place] [address] * (ABNORMAL) Albumin, urine, random (05/19/2024 12:30 PM EDT) Creatinine, Urine 95.21 mg/dL Se e order comments Urine Microalbumin 31.0 mg/L See order comments Microalbumin/Crea tinine Ratio 32.5(H) <30 ug/mg cr See order comments Comment: ?Albumin/Creatinine Ratio Reference Ranges: ?Normal: < 30 ug/mg creatinine ?Microalbuminuria: ??30 - 300 ug/mg creatinine Clinical Albuminuria: ??> 300 ug/mg creatinine 05/19/2024 12:3 0 PM EDT 05/19/2024 12:30 PM EDT us Anthony Catalan MD LAB URINE ORDERABLES Final Re sult Performing Organization Address [facility] de Phone Number [place] See order comments [place] [address] * Urinalysis (05/19/2024 12:30 PM EDT) Color Urine Yellow See orde r comments Appearance Urine Clear See order comments pH Urine 5.0 5.0 - 9.0 See order comments Glucose Urine Negative Negative mg/dL See order comments Blood, Urine Negative Negative See ord er comments Specific [place] Urine 1.010 1.005 - 1.025 See order comments Protein Urine Negative Neg-Trace mg/dL See order comments Ketones, Urine Negative Negative mg/dL See order comments Nitrite, Urine Negative Negative See o rder comments Leukocyte Esterase Urine Negative Negative See order comments 05/19/2024 12:3 0 PM EDT 05/19/2024 12:30 PM EDT Anthony Catalan MD LAB URINE ORDERABLES Final Re sult Performing Organization Address [facility] de Phone Number [place] See order comments [place] [address] * Calcium (05/19/2024 12:06 PM EDT) Calcium 9.3 8.4 - 10.2 mg/dL See order comments 05/19/2024 12:0 6 PM EDT 05/19/2024 12:06 PM EDT Anthony Catalan MD LAB BLOOD ORDERABLES Final Re sult Performing Organization Address [facility] de Phone Number [place] See order comments [place] [address] * (ABNORMAL) Creatinine (05/19/2024 12:06 PM EDT) Creatinine Serum 1.75(H) 0.5 - 1.4 mg/dL See order comments eGFR 38 See order comments Comment: Chronic Kidney Disease: ??Estimated GFR < 60 mL/min/1.73m2 Severe Kidney Disease: ??Estimated GFR < 15 mL/min/1.73m2 05/19/2024 12:0 6 PM EDT 05/19/2024 12:06 PM EDT Anthony Catalan MD LAB BLOOD ORDERABLES Final Re sult Performing Organization Address City/[facility]/ZIP Co de Phone Number [facility] See order comments [place] [address] * (ABNORMAL) Electrolyte panel (05/19/2024 12:06 PM EDT) Sodium 141 135 - 145 mmol/L See order comments Potassium 4.4 3.3 - 5.1 mmol/L See order comments Chloride 113(H) 96 - 108 mmol/L See order comments Bicarbonate (CO2) 19(L) 22 - 29 mmol/L See order comments Anion Gap 13 12 - 20 See order comments 05/19/2024 12:0 6 PM EDT 05/19/2024 12:06 PM EDT Anthony Catalan MD LAB BLOOD ORDERABLES Final Re sult Performing Organization Address City/[facility]/ZIP Co de Phone Number [place] See order comments [place] [address] documented in this encounter Visit Diagnoses Not on filedocumented in this encounter Care Teams Metal Molder Relationship Specialty Start Date End Date Fransisco Hodges MD [address] [place], [place] PCP - General Internal Medicine 09/29/20 documented as of this encounter
--- OUTSIDE RECORDS SUMMARY | 2024-05-19 14:40 | XMS_ITS | Clinical Summary ---
Author Organization [facility] Address [address] [facility] [address] [place] [address] Phone Care Team Providers Care Cone Machine Feeder Name Role Phone Fransisco Hodges MD Primary Care Provider [phone] Allergies Active Allergy Reactions Criticality Noted Date Comments Ezetimibe 12/01/2020 Niacin 12/01/2020 Medications amLODIPine (NORVASC) 5 MG tablet Take 5 mg by mouth 1 (one) time each day Active aspirin (ST CHRISTA) 81 MG EC tablet Take 81 mg by mouth 1 (one) time each day Active cholestyramine (QUESTRAN) 4 g packet Take 1 packet by mouth 1 (one) time each day Active lisinopril-hydr oCHLOROthiazide (PRINZIDE,ZESTO RETIC) 20-12.5 MG per tablet Take 1 tablet by mouth 1 (one) time each day Active metoprolol succinate XL (TOPROL XL) 25 MG 24 hr tablet Take 25 mg by mouth 1 (one) time each day Do not crush or chew. Active [place]-3 Fatty Acids (Fish Oil) 1000 MG capsule delayed-release Take 1 capsule by mouth 1 (one) time each day Active rosuvastatin (CRESTOR) 20 MG tablet Take 30 mg by mouth every other day Active Active Problems Problem Noted Date Diagnosed Date Hypertensive heart and chron ic kidney disease without heart failure, with stage 1 through stage 4 chronic kidney disease, or unspecified chronic kidney disease 11/04/2023 Chronic kidney disease, stage 4 (severe) 024 Renal osteodystrophy 11/04/2023 Stage 3b chronic kidney disease 01/28/2023 Chronic kidney disease due to benign hypertensio n 01/28/2023 Encounters Date Type Department Care Team Description 05/19/2024 Orders Only [facility] [place] [facility] [address] [address] Anthony Catalan MD from Last 3 Months Family History Medical History Relation Comments Heart disease Brother Hypertension Brother Heart disease Father Hypertension Father Heart disease Mother Hypertension Mother Relation Status Comments Brother Father Mother Social History Tobacco Use Types Packs/Day Years Used Date Smoking Tobacco: Former Smokeless Tobacco: Former Tobacco Cessation:Counseling Given: Not Answered Alcohol Use Standard Drinks/Week Comments Yes 0 (1 standard drink = 0.6 oz pur e alcohol) Sex and Gender Information Value Date Recorded Sex Assigned at Not on file Legal Sex Male 11:18 AM EDT Gender Identity Not on file Sexual Orientation Not on file Last Filed Vital Signs Vital Sign Reading Time Taken Comments Blood Pressure 144/65 11/04/2023 3:43 PM EDT Pulse 64 11/04/2023 3:43 PM EDT Temperature - - Respiratory Rate - - Oxygen Saturation 97% 11/04/2023 3:43 PM EDT Inhaled Oxygen Concentration - - Weight 74.4 kg (164 lb) 11/04/2023 3:43 PM EDT Height - - Body Mass Index - - Plan of Treatment Upcoming Encounters Date Type Department Care Team (Late st Contact Info) Description 05/25/2024 3:45 PM EDT Office Visit [facility] [address] [place] [address] Anthony Catalan MD [address] [phone] Health Maintenance Due Date Last Done Comments Pneumococcal Vaccine: 65+ Ye ars (1 of 2 - PCV) 1951 Influenza Vaccine (#1) 2023 Hepatitis B Vaccine Aged Out No longe r eligible based on patient's age to complete this topic Procedures Procedure Name Priority Date/Time Associated Diagnosis Comments PROTEIN / CREATININE RATIO, URINE Routine 05/19/2024 12:30 PM EDT ALBUMIN, URINE, RANDOM Routine 05/19/2024 12:30 PM EDT URINALYSIS Routine 05/19/2024 12:30 PM EDT CALCIUM Routine 05/19/2024 12:06 PM EDT CREATININE, BLOOD Routine 05/19/2024 12: 06 PM EDT ELECTROLYTE PANEL Routine 05/19/2024 12: 06 PM EDT from Last 3 Months Results * Protein, Total, Random Urine w/Creatinine [...] ORDERABLES Final Re sult Performing Organization Address [facility] de Phone Number [facility] See order comments [place] [address] * (ABNORMAL) Albumin, urine, random (05/19/2024 12:30 [...] ORDERABLES Final Re sult Performing Organization Address [facility]/ZIP Co de Phone Number [place] See order comments [place] [address] * Urinalysis (05/19/2024 12:30 PM EDT) Color Urine Yellow See orde r comments Appearance Urine Clear See order comments pH Urine 5.0 5.0 - 9.0 See order comments Glucose Urine Negative Negative mg/dL See order comments Blood, Urine Negative Negative See ord er comments Specific [place] Urine 1.010 1.005 - 1.025 See order comments Protein Urine Negative Neg-Trace mg/dL See order comments Ketones, Urine Negative Negative mg/dL See order comments Nitrite, Urine Negative Negative See o rder comments Leukocyte Esterase Urine Negative Negative See order comments 05/19/2024 12:3 0 PM EDT 05/19/2024 12:30 PM EDT Anthony Catalan MD LAB URINE ORDERABLES Final Re sult Performing Organization Address [facility] de Phone Number [place] See order comments [place] [address] * (ABNORMAL) Creatinine (05/19/2024 12:06 PM EDT) Creatinine Serum 1.75(H) 0.5 - 1.4 mg/dL See order comments eGFR 38 See order comments Comment: Chronic Kidney Disease: ??Estimated GFR < 60 mL/min/1.73m2 Severe Kidney Disease: ??Estimated GFR < 15 mL/min/1.73m2 05/19/2024 12:0 6 PM EDT 05/19/2024 12:06 PM EDT Anthony Catalan MD LAB BLOOD ORDERABLES Final Re sult Performing Organization Address [facility] de Phone Number [place] See order comments [place] [address] * Calcium (05/19/2024 12:06 PM EDT) Calcium 9.3 8.4 - 10.2 mg/dL See order comments 05/19/2024 12:0 6 PM EDT 05/19/2024 12:06 PM EDT Anthony Catalan MD LAB BLOOD ORDERABLES Final Re sult Performing Organization Address City/[facility]/ZIP Co de Phone Number [place] See order comments [place] [address] * (ABNORMAL) Electrolyte panel (05/19/2024 12:06 PM [...] ORDERABLES Final Re sult Performing Organization Address [facility] Co de Phone Number [place] See order comments [place] [address] from Last 3 Months Insurance MEDICARE [facility] MEDICARE [facility] Care Teams Cone Machine Feeder Relationship Specialty Start Date End Date Fransisco Hodges MD [address] [place], [place] PCP - General Internal Medicine 09/29/20
== END 2024-05-19 11:53 | disposition home or self-care (01) ==
LOC: HO.LAB 11:52
PROVIDERS: PCP Internal Medicine; Visit Provider Internal Medicine Nephrology
DX: N18.4 Chronic kidney disease, stage 4 (severe) (principal); N18.9 Chronic kidney disease, unspecified; I12.9 Hypertensive chronic kidney disease with stage 1 through stage 4 chronic kidney disease, or unspecified chronic kidney disease
CPT/HCPCS: 36415; 80051; 81003; 82043; 82310; 82565; 82570; 84156

== ENCOUNTER 2024-06-19 10:31 | Outpatient (AMB) | payer MEDICARE, OTHER, SELFPAY ==
--- NOTE | 2024-06-19 11:19 | AM.OFFWIN_ITS ---
Intake Vital Signs 06/19/24 11:20 Height 5 ft 8 in Weight 166 lb 8 oz BMI 25.3 BP 132/78 Blood Pressure Location Lt brachial Position Sitting Pulse 67 Pulse Source Pulse Oximeter Temp 98.1 F Temp Source Oral Pulse Oximetry (%) 96 Oxygen Delivery Method Room Air Intake Visit Reasons: EP rash Intake Note: Pt presents to the office today for c/o a rash that started about 3 days ago on his shoulders,back,and arms. Pt states the rash is itchy not is not painful. Patient Tobacco Use Status: Former Tobacco user Allergies ezetimibe [Zetia] Adverse Reaction (Unknown, Verified 06/19/24 11:22) muscle pain niacin Adverse Reaction (Unknown, Verified 06/19/24 11:22) flushing HPI EP rash HPI Details This is an 79-year-old male patient, Mel who presents to the walk- in clinic today with a 3 day history of a rash on his chest, back, and upper abdomen. This started randomly several days ago. Patient denies any exposure to any new products, such as shampoos, soaps, detergents. He has been taking Zyrtec with minimal relief. He is having a lot of itching, particularly at nighttime. Denies any itching or swelling in his mouth/tongue or throat [facility] Medical History COVID-19 Hypertension Hyperlipidemia Surgical History H/O carotid endarterectomy Family History Father Heart problem Mother Heart problem Brother No problems noted. Son No problems noted. Daughter No problems noted. Daughter No problems noted. Daughter No problems noted. Social History Housing: House Alcohol intake: current Alcohol intake frequency: a few times a week Patient Tobacco Use Status: Former Tobacco user Tobacco use type: Cigarette e-Cigarette/Vaping Use: Never Used Second Hand Smoke Exposure: No service: No Current occupational status: retired Cognitive needs: No Hearing needs: No Vision needs: Yes (reading glasses) Review of Systems Const All systems reviewed & are unremarkable except as noted in HPI and below Physical Exam Vital Signs: Last Vital Signs Temp 98.1 F 06/19/24 11:20 Pulse 67 06/19/24 11:20 BP 132/78 06/19/24 11:20 Pulse Ox 96 06/19/24 11:20 Oxygen Delivery Method Room Air 06/19/24 11:20 BMI result Body Mass Index 25.3 Const General: cooperative, healthy appearing, comfortable and no acute distress HEENT Head: Yes normal to inspection Ears: hearing grossly normal bilaterally Resp Effort & Inspection: normal respiratory effort Auscultation: clear to auscultation bilaterally Cardio Rate: regular rate Rhythm: regular rhythm Skin Other: scattered urticaria upper chest, back, and upper abdomen General skin exam: turgor normal Extrem General: Yes capillary refill normal and Yes no clubbing, cyanosis or edema Psych Appearance: grossly normal Mental Status: mental status grossly normal Speech and movement: Normal speech and movement present Assessment & Plan Assessment & Plan (1) Allergic reaction: Code(s): T78.40XA - Allergy, unspecified, initial encounter Qualifiers: Encounter type: initial encounter Qualified Code(s): T78.40XA - Allergy, unspecified, initial encounter Plan: I am going to start patient on a course of Prednisone. Also will prescribe hydroxyzine to be taken at bedtime. We reviewed indications, use, possible side effects of both medications. Patient actually has a dermatology follow-up next Saturday for a routine follow-up due to a history of melanoma. He also has an appointment with PCP next Saturday, should he need to keep appointment. He has several options for f/u for this rash should he not improve with treatment. All questions were answered and patient and present at visit verbalize understanding and agree to plan. Medications: New prednisone Take 2 tabs daily by mouth for 5 days. 40 mg (2 x 20 mg) PO DAILY 5 days 10 tabs 0RF T78.40XA - Allergy, unspecified, initial encounter hydroxyzine HCl Take one tablet at bedtime as needed for rash/itching. 25 mg PO BEDTIME 7 days PRN 7 tabs 0RF itching T78.40XA - Allergy, unspecified, initial encounter Coding Level of Care Code Est Pt Level 4 (10658) Diagnoses Allergic reaction, initial encounter T78.40XA Encounter type: initial encounter
[2024-06-19 11:20] VITALS: BP 132/78; PULSE 67; TEMP 36.7; O2SAT 96; BMI 25.3
--- OUTSIDE RECORDS SUMMARY | 2024-06-19 11:21 | XMS_ITS | Clinical Summary ---
Author Organization [facility] [address] [place] [address] Phone Care Team Providers Care Ski Binding Fitter And Repairer Name Role Phone Fransisco Hodges MD Primary Care Provider [phone] Allergies Active Allergy Reactions Criticality Noted Date [...] day Do not crush or chew. Active [place]-3 Fatty Acids (Fish Oil) 1000 MG capsule [...] Encounters Date Type Department Care Team Description 05/25/2024 3:45 PM EDT Office Visit [facility] the [address] [place] [address] Anthony Catalan MD Stage 3b chronic kidney disease (HCC) (Primary Dx); Renal osteodystrophy 05/19/2024 Orders Only [facility] [address] [address] Anthony Catalan MD from Last 3 Months [...] Sign Reading Time Taken Comments Blood Pressure 138/90 05/25/2024 3:45 PM EDT Pulse 75 05/25/2024 3:45 PM EDT Temperature - - Respiratory Rate - - Oxygen Saturation 97% 05/25/2024 3:45 PM EDT Inhaled Oxygen Concentration - - Weight 74.8 kg (165 lb) 05/25/2024 3:45 PM EDT Height - - Body Mass Index - - Plan of Treatment Upcoming Encounters Date Type Department Care Team (Late st Contact Info) Description 12/07/2024 3:45 PM EDT Office Visit [facility] the [address] [place] [address] Anthony Catalan MD [address] [address] Health Maintenance Due Date Last Done Comments Pneumococcal Vaccine: 50+ Ye ars (1 of 2 - PCV) 1951 Influenza Vaccine (Season Ended) 2024 Hepatitis B Vaccine Aged Out No longe [...] MD LAB URINE ORDERABLES Final Re sult [place] See order comments [place] [address] * (ABNORMAL) Albumin, urine, random (05/19/2024 12:30 [...] ORDERABLES Final Re sult Performing Organization Address [facility] de Phone Number [place] See order comments [place] [address] * Urinalysis (05/19/2024 12:30 PM EDT) Color Urine Yellow See orde r comments Appearance Urine Clear See order comments pH Urine 5.0 5.0 - 9.0 See order comments Glucose Urine Negative Negative mg/dL See order comments Blood, Urine Negative Negative See ord er comments Specific [place] Urine 1.010 1.005 - 1.025 See order comments Protein Urine Negative Neg-Trace mg/dL See order comments Ketones, Urine Negative Negative mg/dL See order comments Nitrite, Urine Negative Negative See o rder comments Leukocyte Esterase Urine Negative Negative See order comments 05/19/2024 12:3 0 PM EDT 05/19/2024 12:30 PM EDT us Anthony Catalan MD LAB URINE ORDERABLES Final Re sult Performing Organization Address [facility] Phone Number [place] See order comments [place] [address] * (ABNORMAL) Creatinine (05/19/2024 12:06 PM EDT) Creatinine Serum 1.75(H) 0.5 - 1.4 mg/dL See order comments eGFR 38 See order comments Comment: Chronic Kidney Disease: ??Estimated GFR < 60 mL/min/1.73m2 Severe Kidney Disease: ??Estimated GFR < 15 mL/min/1.73m2 05/19/2024 12:0 6 PM EDT 05/19/2024 12:06 PM EDT us Anthony Catalan MD LAB BLOOD ORDERABLES Final Re sult Performing Organization Address [facility] de Phone Number [place] See order comments [place] [address] * Calcium (05/19/2024 12:06 PM EDT) Calcium 9.3 8.4 - 10.2 mg/dL See order comments 05/19/2024 12:0 6 PM EDT 05/19/2024 12:06 PM EDT Anthony Catalan MD LAB BLOOD ORDERABLES Final Re sult Performing Organization Address [facility] Co de Phone Number [place] See order comments [place] [address] * (ABNORMAL) Electrolyte panel (05/19/2024 12:06 PM [...] ORDERABLES Final Re sult Performing Organization Address [facility] de Phone Number [place] See order comments [place] [address] from Last 3 Months Insurance Medicare [facility] Medicare [facility] Care Teams Ski Binding Fitter And Repairer Relationship Specialty Start Date End Date Fransisco Hodges MD [address] [place], [place] PCP - General Internal Medicine 09/29/20
== END 2024-06-19 11:56 | disposition home or self-care (01) ==
PROVIDERS: Visit Provider Nurse Practitioner Family
DX: T78.40XA Allergy, unspecified, initial encounter (principal)

== ENCOUNTER → 2024-06-19 10:31 | Outpatient (BNVA) | payer MEDICARE, OTHER, SELFPAY | DX: T78.40XA Allergy, unspecified, initial encounter (principal) | CPT/HCPCS: 99212 ==

== ENCOUNTER 2024-06-26 10:04 | Outpatient (AMB) | payer MEDICARE, OTHER, SELFPAY ==
[2024-06-26 10:27] VITALS: BP 126/70; PULSE 61; RESP 15; TEMP 36.8; O2SAT 97; BMI 24.8
--- NOTE | 2024-06-26 10:27 | AM.OFFWIN_ITS ---
Intake Vital Signs 06/26/24 10:27 Height 5 ft 8 in Weight 163 lb BMI 24.8 BP 126/70 Blood Pressure Location Rt brachial Position Sitting Respiration 15 Pulse 61 Pulse Source Pulse Oximeter Temp 98.3 F Temp Source Oral Pulse Oximetry (%) 97 Oxygen Delivery Method Room Air Intake Visit Reasons: EP Rash Intake Note: Pt is here today c/o rash upper back Patient Tobacco Use Status: Former Tobacco user Allergies ezetimibe [Zetia] Adverse Reaction (Unknown, Verified 06/19/24 11:22) muscle pain niacin Adverse Reaction (Unknown, Verified 06/19/24 11:22) flushing HPI HPI Comments History of Present Illness Details 79 y/o Male patient who presents to the walk in clinic with c/o Itchy red Rash on his Back, chest and Upper Arms. He was seen here 06/19 and prescribed Prednisone taper and Hydroxyzine. Prednisone helped with itching , but Rash never resolved. He had an appointment with his Dermatology 06/24 but got cancelled and not rescheduled yet. Denies any changes to diet, medications, Detergent or cosmetic products. [facility] Medical History COVID-19 Hypertension Hyperlipidemia Surgical History H/O carotid endarterectomy Family History Father Heart problem Mother Heart problem Brother No problems noted. Son No problems noted. Daughter No problems noted. Daughter No problems noted. Daughter No problems noted. Social History Housing: House Alcohol intake: current Alcohol intake frequency: a few times a week Patient Tobacco Use Status: Former Tobacco user Tobacco use type: Cigarette e-Cigarette/Vaping Use: Never Used Second Hand Smoke Exposure: No service: No Current occupational status: retired Cognitive needs: No Hearing needs: No Vision needs: Yes (reading glasses) Review of Systems Const All systems reviewed & are unremarkable except as noted in HPI and below Physical Exam Vital Signs: Last Vital Signs Temp 98.3 F 06/26/24 10:27 Pulse 61 06/26/24 10:27 Resp 15 04/18/25 10:27 BP 126/70 06/26/24 10:27 Pulse Ox 97 06/26/24 10:27 Oxygen Delivery Method Room Air 06/26/24 10:27 BMI result Body Mass Index 24.8 Const General: no acute distress Orientation/consciousness: patient oriented x3 Skin Other: Scattered urticaria upper chest, back, and upper abdomen and Arms. General skin exam: dry skin and erythema Neuro General: patient oriented x3, gait normal and moves all extremities Psych Speech and movement: Normal speech and movement present Assessment & Plan Assessment & Plan (1) Allergic contact dermatitis: Code(s): L23.9 - Allergic contact dermatitis, unspecified cause Qualifiers: Contact dermatitis trigger: unspecified trigger Qualified Code(s): L23.9 - Allergic contact dermatitis, unspecified cause Plan: Follow up with Dermatology, call and reschedule appointment. Continue taking Hydroxyzine and Zrytec for itching. Ordered Steroid Cream to be applied BID for 14 days. Medications: New betamethasone dipropionate 0.05% 1 appl topical BID 14 days 45 grams 1RF L23.9 - Allergic contact dermatitis, unspecified cause Coding Level of Care Code Est Pt Level 4 (90666) Diagnoses Allergic contact dermatitis, unspecified trigger L23.9 Contact dermatitis trigger: unspecified trigger Time Spent (min) 20
--- OUTSIDE RECORDS SUMMARY | 2024-06-26 10:53 | XMS_ITS | Clinical Summary ---
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); Renal osteodystrophy 05/19/2024 Orders Only [facility] [address] [address] Anthony Catalan MD from Last [...] Visit [facility] [address] [place] [address] Anthony Catalan MD [address] [address] Health Maintenance Due Date Last Done Comments Pneumococcal Vaccine: 50+ Ye ars (1 of 2 - PCV) 1964 Influenza Vaccine (Season Ended) 2024 Hepatitis B [...] EDT 05/19/2024 12:30 PM EDT us Anthony Ctaalan MD LAB URINE ORDERABLES Final Re sult [place] See order comments [place] [address] * (ABNORMAL) Albumin, urine, random (05/19/2024 12:30 [...] ORDERABLES Final Re sult Performing Organization Address [facility] Phone Number [place] See order comments [place] [address] * Urinalysis (05/19/2024 12:30 PM EDT) Color Urine Yellow See orde r comments Appearance Urine Clear See order comments pH Urine 5.0 5.0 - 9.0 See order comments Glucose Urine Negative Negative mg/dL See order comments Blood, Urine Negative Negative See ord er comments Specific [place] Urine 1.010 1.005 - 1.025 See order comments Protein Urine Negative Neg-Trace mg/dL See order comments Ketones, Urine Negative Negative mg/dL See order comments Nitrite, Urine Negative Negative See o rder comments Leukocyte Esterase Urine Negative Negative See order comments 05/19/2024 12:3 0 PM EDT 05/19/2024 12:30 PM EDT us Anthony Catalan MD LAB URINE ORDERABLES Final Re sult Performing Organization Address [facility] Phone Number [place] See order comments [place] [address] * (ABNORMAL) Creatinine (05/19/2024 12:06 PM EDT) Creatinine Serum 1.75(H) 0.5 - 1.4 mg/dL See order comments eGFR 38 See order comments Comment: Chronic Kidney Disease: ??Estimated GFR < 60 mL/min/1.73m2 Severe Kidney Disease: ??Estimated GFR < 15 mL/min/1.73m2 05/19/2024 12:0 6 PM EDT 05/19/2024 12:06 PM EDT us Anthony Catalan MD LAB BLOOD ORDERABLES Final Re sult Performing Organization Address [facility] de Phone Number [place] See order comments [place] [address] * Calcium (05/19/2024 12:06 PM EDT) Calcium 9.3 8.4 - 10.2 mg/dL See order comments 05/19/2024 12:0 6 PM EDT 05/19/2024 12:06 PM EDT Anthony Catalan MD LAB BLOOD ORDERABLES Final Re sult Performing Organization Address [facility] Co de Phone Number [place] See order comments [place] [address] * (ABNORMAL) Electrolyte panel (05/19/2024 12:06 PM [...] ORDERABLES Final Re sult Performing Organization Address [facility] de Phone Number [place] See order comments [place] [address] from Last 3 Months Insurance Medicare [facility] Medicare [facility] Care Teams Motorboat Mechanic Inboard Relationship Specialty Start Date End Date Fransisco Hodges MD [address] [place], [place] PCP - General Internal Medicine 09/29/20
== END 2024-06-26 12:09 | disposition home or self-care (01) ==
PROVIDERS: Visit Provider Nurse Practitioner Family
DX: L23.9 Allergic contact dermatitis, unspecified cause (principal)

== ENCOUNTER → 2024-06-26 10:04 | Outpatient (BNVA) | payer MEDICARE, OTHER, SELFPAY | PROVIDERS: Visit Provider Nurse Practitioner Family | DX: L23.9 Allergic contact dermatitis, unspecified cause (principal) | CPT/HCPCS: 99212 ==

== ENCOUNTER 2024-07-03 08:42 | Outpatient (AMB) | payer MEDICARE, OTHER, SELFPAY ==
--- OUTSIDE RECORDS SUMMARY | 2024-07-03 08:49 | XMS_ITS | Clinical Summary ---
Author Organization [facility] [address] [place] [address] Phone Care Team Providers Care Roll Inspector Name Role Phone Fransisco Hodges MD Primary Care Provider [phone] Allergies Active Allergy Reactions Criticality Noted Date [...] day Do not crush or chew. Active Pinola-3 Fatty Acids (Fish Oil) 1000 MG capsule [...] Visit [facility] [address] [place] [address] Anthony Catalan MD Stage 3b chronic kidney disease (HCC) (Primary Dx); Renal osteodystrophy 05/19/2024 Orders Only [facility] [address] [address] Anthony Catalan MD from Last [...] Visit [facility] [address] [place] [address] Anthony Catalan MD [address] [address] Health Maintenance Due Date Last [...] MD LAB URINE ORDERABLES Final Re sult [place] See order comments [place] [address] * (ABNORMAL) Albumin, urine, random (05/19/2024 12:30 [...] ORDERABLES Final Re sult Performing Organization Address [facility] de Phone Number [place] See order comments [place] [address] * Urinalysis (05/19/2024 12:30 PM EDT) Color Urine Yellow See orde r comments Appearance Urine Clear See order comments pH Urine 5.0 5.0 - 9.0 See order comments Glucose Urine Negative Negative mg/dL See order comments Blood, Urine Negative Negative See ord er comments Specific [place] Urine 1.010 1.005 - 1.025 See order comments Protein Urine Negative Neg-Trace mg/dL See order comments Ketones, Urine Negative Negative mg/dL See order comments Nitrite, Urine Negative Negative See o rder comments Leukocyte Esterase Urine Negative Negative See order comments 05/19/2024 12:3 0 PM EDT 05/19/2024 12:30 PM EDT us Anthony Catalan MD LAB URINE ORDERABLES Final Re sult Performing Organization Address [facility] Phone Number [place] See order comments [place] [address] * (ABNORMAL) Creatinine (05/19/2024 12:06 PM EDT) Creatinine Serum 1.75(H) 0.5 - 1.4 mg/dL See order comments eGFR 38 See order comments Comment: Chronic Kidney Disease: ??Estimated GFR < 60 mL/min/1.73m2 Severe Kidney Disease: ??Estimated GFR < 15 mL/min/1.73m2 05/19/2024 12:0 6 PM EDT 05/19/2024 12:06 PM EDT us Anthony Catalan MD LAB BLOOD ORDERABLES Final Re sult Performing Organization Address [facility] de Phone Number [place] See order comments [place] [address] * Calcium (05/19/2024 12:06 PM EDT) Calcium 9.3 8.4 - 10.2 mg/dL See order comments 05/19/2024 12:0 6 PM EDT 05/19/2024 12:06 PM EDT Anthony Catalan MD LAB BLOOD ORDERABLES Final Re sult Performing Organization Address [facility] Co de Phone Number [place] See order comments [place] [address] * (ABNORMAL) Electrolyte panel (05/19/2024 12:06 PM [...] ORDERABLES Final Re sult Performing Organization Address [facility] de Phone Number [place] See order comments [place] [address] from Last 3 Months Insurance Medicare [facility] Medicare [facility] Care Teams Roll Inspector Relationship Specialty Start Date End Date Fransisco Hodges MD [address] [place], [place] PCP - General Internal Medicine 09/29/20
[2024-07-03 08:50] VITALS: BP 130/66; PULSE 51; RESP 14; TEMP 36.9; O2SAT 99; BMI 24.6
--- NOTE | 2024-07-03 08:50 | MHC.PC.OV ---
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 Accompanied by: Spouse Allergies ezetimibe [Zetia] Adverse Reaction (Unknown, Verified 07/03/24 09:18) muscle pain niacin Adverse Reaction (Unknown, Verified 07/03/24 09:18) flushing Medication List - Last Reconciled 07/03/24 by SAVANNAH Martinez amlodipine 5 mg PO DAILY aspirin (Adult Low Dose Aspirin) 81 mg PO DAILY betamethasone dipropionate 0.05% 1 appl topical BID 14 days cholestyramine (with sugar) 4 gram 4 grams PO DAILY lisinopril-hydrochlorothiazide 20-12.5 mg 1 tab PO BID metoprolol succinate ER 25 mg PO DAILY omega-3 fatty acids 1,000 mg PO DAILY rosuvastatin 30 mg (1.5 x 20 mg) PO DAILY Tobacco use date assessed: 07/03/24 Fall risk assessment: No Falls in past year Last assessed Fall Risk: 07/03/24 Dental Screening Dental Screen Date: 07/03/24 Did you have a dental visit in the last 12 months?: No Did you have a dental problem in the last 6 months where you did not have access to dental care?: No Was dental information given to patient?: No HPI follow up 4 months transfer from [facility] HPI Details The patient is an 79-year-old male presenting to transitioned care from Dr. Hodges, who retired. In addition to follow-up care of chronic conditions. He reported the onset of a rash located on the anterior torso, shoulders, and back. Initially treated with a short course of prednisone, which was effective only temporarily, the rash recurred, responding better to topical betamethasone cream. This treatment is ongoing. The patient has a documented history of carotid artery stenosis for which two interventions were performed on the same artery over a two-year period without any complications post-procedure. Management of secondary hypertension includes a regimen of metoprolol, lisinopril, hydrochlorothiazide, amlodipine, and aspirin. His chronic renal insufficiency shows slight improvement based on earlier laboratory work. 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 [facility] Medical History Allergic contact dermatitis COVID-19 Hypertension Hyperlipidemia Surgical History H/O carotid endarterectomy Family History Father Heart problem Mother Heart problem Brother No problems noted. Son No problems noted. Daughter No problems noted. Daughter No problems noted. Daughter No problems noted. Social History Housing: House Alcohol intake: current Alcohol intake frequency: a few times a week Patient Tobacco Use Status: Former Tobacco user Tobacco use type: Cigarette e-Cigarette/Vaping Use: Never Used Second Hand Smoke Exposure: No service: No Current occupational status: retired Cognitive needs: No Hearing needs: No Vision needs: Yes (Reading glasses) Questionnaire PHQ-9 Over the last 2 weeks, how often have you been bothered by any of the following problems? 1. Little interest or pleasure in doing things: not at all 2. Feeling down, depressed, or hopeless: not at all 3. Trouble falling or staying asleep, or sleeping too much: not at all 4. Feeling tired or having little energy: not at all 5. Poor appetite or overeating: not at all 6. Feeling bad about yourself - or that you are a failure or have let yourself or your family down: not at all 7. Trouble concentrating on things, such as reading the newspaper or watching television: not at all 8. Moving or speaking so slowly that other people could have noticed. Or the opposite - being so fidgety or restless that you have been moving around a lot more than usual: not at all 9. Thoughts that you would be better off or of hurting yourself in some way: not at all Total score: 0 Depression Screening Interpretation: Negative Depression Screening Done: Yes 72272 - PHQ-9 Billing: Yes Source: Developed by Drs. Denys Suero, Francia Shelton, Robinson Phillips and colleagues, with an educational ramiro from [employer]. Thrive Questionnaire Date Thrive assessed: 07/03/24 I am a: Patient What is your living situation today?: I have a steady place to live Within the past 12 months, did the food you bought not last and you didn't have the money to get more?: Never true Within the past 12 months, did you worry whether your food would run out before you got money to buy more?: Never true Do you have trouble paying for medicines?: No Do you have trouble getting transportation to medical appointments?: No Do you have trouble paying your heating and electricity bill?: No Do you have trouble taking care of your child, family member or friend?: No Do you have trouble with day-to-day activities such as bathing, preparing meals, shopping, managing finances, etc.?: No Are you currently unemployed and looking for a job?: No Are you interested in more education?: No Please select the resources that you would like help with: None Currently or been in a relationship where the following occur: No concerns reported THRIVE Score: 0 AUDIT C Alcohol Use Questionnaire (AUDIT-C) 1. How often do you have a drink containing alcohol?: 2-3 times a week 2. How many drinks containing alcohol do you have on a typical day when you are drinking?: 1 or 2 3. How often do you have six or more drinks on one occasion?: Never Total Score: 3 Score Reviewed/Action Taken: No GRACE-7 AMB Questionnaire GRACE-7 Date GRACE - 7 assessed: 07/03/24 Feeling nervous, anxious, or on edge: 0 = Not at all Not being able to stop or control worryin = Not at all Worrying too much about different things: 0 = Not at all Trouble relaxin = Not at all Being so restless that it is hard to sit still: 0 = Not at all Becoming easily annoyed or irritable: 0 = Not at all Feeling afraid as if something awful might happen: 0 = Not at all Total GRACE-7 score (0-4 normal; 5-9 mild; 10-14 moderate; 15-21 severe): 0 Source: Developed by Francia Valdez B.W. Nikita, Robinson Phillips and colleagues, with an educational ramiro from [employer]. GRACE-7 Assessment Billing GRACE-7 Assessment Tool: GARCE-7 Assessment 64253 Review of Systems Const Denies headache(s) Eyes Denies loss of vision ENT Denies vertigo, Denies dizziness, Denies headache(s) and Denies sore throat Card Denies chest pain, Denies leg edema and Denies lightheadedness Resp Denies cough, Denies hemoptysis and Denies wheezing GI Denies abdominal pain, Denies melena, Denies constipation, Denies diarrhea and Denies vomiting Denies dysuria, Denies urinary frequency and Denies urinary urgency Musc Denies arthralgias, Denies joint swelling, Denies numbness and Denies tingling Skin/Breast Reports rash (torso, shoulder, and back-resolved now, but recurrent) Neuro Denies Abnormal speech present, Denies behavioral changes, Denies vertigo, Denies dizziness, Denies headache(s), Denies loss of vision, Denies memory loss, Denies numbness and Denies tingling Psych Denies anxiety, Denies behavioral changes, Denies depression, Denies memory loss and Denies panic attacks Kwame/Lymph Denies easy bleeding and Denies easy bruising Aller/Immun Denies wheezing Physical exam (Primary Care) Vital Signs: Last Vital Signs Temp 98.5 F 07/03/24 08:50 Pulse 51 07/03/24 08:50 Resp 14 07/03/24 08:50 BP 130/66 07/03/24 08:50 Pulse Ox 99 07/03/24 08:50 Oxygen Delivery Method Room Air 07/03/24 08:50 BMI result Body Mass Index 24.6 Tobacco/Smoking Status: Tobacco use Status Tobacco use date assessed 07/03/24 07/03/24 09:02 Patient Tobacco Use Status Former Tobacco user 07/03/24 09:02 Tobacco use type Cigarette 07/03/24 09:02 e-Cigarette/Vaping Use Never Used 07/03/24 09:02 PHQ-9: PHQ-9 Score PHQ-9: Total score 0 07/03/24 09:29 Depression Screening Interpretation: Negative Thrive Assessment: Date of Thrive Assessment Date Thrive assessed 04/25/25 04/25/25 09:02 Currently or been in a relationship where the following occur: No concerns reported Const General: healthy appearing, no acute distress, alert and awake Nutritional Appearance: well nourished Orientation/consciousness: oriented to person, oriented to place and oriented to time HENMT Ears: TM's normal bilaterally General nose exam: Normal nasal mucous membranes and turbinates present Eyes Conjunctivae: conjunctivae normal Sclerae: sclerae normal Pupils: Equal, round and reactive pupils present Neck Neck: Yes no lymphadenopathy and Yes no JVD Thyroid: Thyroid normal Carotids: no bruits Resp Effort & Inspection: normal respiratory effort and not tachypneic Auscultation: no crackles, no rales, no rhonchi and no wheezes Cardio Rate: regular rate Rhythm: regular rhythm Heart sounds: no murmurs and normal S1 and S2 GI Palpation (GI): Soft to palpation, nontender, no hepatomegaly and no splenomegaly Auscultation: normal bowel sounds Skin General skin exam: no rashes or lesions noted and dry skin Neuro General: oriented to person, oriented to place and oriented to time Cranial nerves: Yes Equal, round and reactive pupils present Speech: No Abnormal speech present Gait exam (Neuro): Normal gait present Motor exam (neuro): no tremor noted Extrem Right upper extremity: full ROM Left upper extremity: full ROM Right lower extremity: full ROM; no edema Left lower extremity: full ROM; no edema Psych Mental Status: mental status grossly normal Speech and movement: Normal speech and movement present Affect: normal affect Attitude: cooperative Thought process: Normal thought process present Coding Level of Care Code Est Pt Level 4 (87555) Diagnoses Allergic contact dermatitis, unspecified trigger L23.9 Contact dermatitis trigger: unspecified trigger Stenosis of left carotid artery I65.22 Laterality: left Hypertension secondary to other renal disorders I15.1 Hypertension type: secondary to other renal disorders Renal insufficiency syndrome N28.9 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 Hyperlipidemia type: pure hypertriglyceridemia Additional Codes GRACE-7 Assessment Billing - GRACE-7 Assessment Tool: GRACE-7 Assessment 44801 ([id number]) PHQ-9 - 52951 - PHQ-9 Billing: Yes ([id number]) Time Spent (min) 39 Assessment & Plan Assessment & Plan (1) Allergic contact dermatitis: Code(s): L23.9 - Allergic contact dermatitis, unspecified cause Category: Medical Qualifiers: Contact dermatitis trigger: unspecified trigger Qualified Code(s): L23.9 - Allergic contact dermatitis, unspecified cause (2) Carotid stenosis: Code(s): I65.29 - Occlusion and stenosis of unspecified carotid artery Category: Medical Qualifiers: Laterality: left Qualified Code(s): I65.22 - Occlusion and stenosis of left carotid artery (3) Hypertension: Code(s): I10 - Essential (primary) hypertension Category: Medical Qualifiers: Hypertension type: secondary to other renal disorders Qualified Code(s): I15.1 - Hypertension secondary to other renal disorders (4) Renal insufficiency syndrome: Comment: 20 min reviewing chart eval pt and documenting Code(s): N28.9 - Disorder of kidney and ureter, unspecified Category: Medical (5) Hyperlipidemia: Code(s): E78.5 - Hyperlipidemia, unspecified Category: Medical Qualifiers: Hyperlipidemia type: pure hypertriglyceridemia Qualified Code(s): E78.1 - Pure hyperglyceridemia Plan The patient will continue betamethasone cream application to manage any recurrence of the rash. Dermatology follow-up remains crucial due to the history of excised melanoma. Current antihypertensive medications will be continued given stable blood pressure readings. Blood work to assess renal function and triglycerides should be completed before the next visit, with review and adjustments based on results. Routine follow-up is scheduled in four months unless early concerns arise from lab results. Ongoing monitoring of cardiovascular health is advised, focusing on maintaining good blood pressure levels. Patient was informed and verbally consented to the use of an ambient scribe for clinic note documentation during this visit. Orders: Orders Glucose Fasting 07/03/24 E78.5 - Hyperlipidemia, unspecified, I10 - Essential (primary) hypertension, I65.29 - Occlusion and stenosis of unspecified carotid artery, N28.9 - Disorder of kidney and ureter, unspecified TSH reflex Free T4 07/03/24 E78.5 - Hyperlipidemia, unspecified, I10 - Essential (primary) hypertension, I65.29 - Occlusion and stenosis of unspecified carotid artery, N28.9 - Disorder of kidney and ureter, unspecified Complete Blood Count Auto Diff 07/03/24 E78.5 - Hyperlipidemia, unspecified, I10 - Essential (primary) hypertension, I65.29 - Occlusion and stenosis of unspecified carotid artery, N28.9 - Disorder of kidney and ureter, unspecified Comprehensive [place]. Panel Fast 07/03/24 E78. - Hyperlipidemia, unspecified, I10 - Essential (primary) hypertension, I65.29 - Occlusion and stenosis of unspecified carotid artery, N28.9 - Disorder of kidney and ureter, unspecified Vitamin D 25-OH Total 07/03/24 E78. - Hyperlipidemia, unspecified, I10 - Essential (primary) hypertension, I65.29 - Occlusion and stenosis of unspecified carotid artery, N28.9 - Disorder of kidney and ureter, unspecified UA CC w/rflx Micro + Cult 07/03/24 E78. - Hyperlipidemia, unspecified, I10 - Essential (primary) hypertension, I65.29 - Occlusion and stenosis of unspecified carotid artery, N28.9 - Disorder of kidney and ureter, unspecified Lipid Panel 07/03/24 E78. - Hyperlipidemia, unspecified, I10 - Essential (primary) hypertension, I65.29 - Occlusion and stenosis of unspecified carotid artery, N28.9 - Disorder of kidney and ureter, unspecified PTH Intact Intraoperative 07/03/24 E78. - Hyperlipidemia, unspecified, I10 - Essential (primary) hypertension, I65.29 - Occlusion and stenosis of unspecified carotid artery, N28.9 - Disorder of kidney and ureter, unspecified Patient Instructions: - Continue applying betamethasone cream for up to 14 days or if symptoms recur - Maintain regular dermatological appointments every three months - Continue current blood pressure medications as prescribed - Schedule blood work to assess renal function and triglycerides as soon as possible - Attend the next follow-up appointment in four months, or sooner if lab results raise concern - Monitor for any new symptoms or changes, and report them if they occur
== END 2024-07-03 09:32 | disposition home or self-care (01) ==
LOC: HO.HMCH 08:43
DX: L23.9 Allergic contact dermatitis, unspecified cause (principal); I65.22 Occlusion and stenosis of left carotid artery; I15.1 Hypertension secondary to other renal disorders; N28.9 Disorder of kidney and ureter, unspecified; E78.1 Pure hyperglyceridemia

== ENCOUNTER → 2024-07-03 08:42 | Outpatient (BNVA) | payer MEDICARE, OTHER, SELFPAY | DX: L23.9 Allergic contact dermatitis, unspecified cause (principal); I65.22 Occlusion and stenosis of left carotid artery; I15.1 Hypertension secondary to other renal disorders; N28.9 Disorder of kidney and ureter, unspecified; E78.1 Pure hyperglyceridemia | CPT/HCPCS: 96127; 99212 ==

== ENCOUNTER 2024-07-08 07:13 | Outpatient (REF) | payer MEDICARE, OTHER, SELFPAY ==
--- OUTSIDE RECORDS SUMMARY | 2024-07-08 07:16 | XMS_ITS | Clinical Summary ---
Author Organization [facility] [address] [place] [place] [address] Phone Care Team Providers Care Account Consultant Name Role Phone Fransisco Hodges MD Primary Care Provider [phone] Allergies Active Allergy Reactions Criticality Noted Date [...] day Do not crush or chew. Active [place]-3 Fatty Acids (Fish Oil) 1000 MG capsule [...] Visit [facility] [address] [place] [address] Anthony Catalan MD Stage 3b chronic kidney disease (HCC) (Primary Dx); Renal osteodystrophy 05/19/2024 Orders Only [facility] [address] [address] Anthony Catalan MD from Last [...] Visit [facility] [address] [place] [address] Anthony Catalan MD [address] [address] Health Maintenance Due Date Last [...] MD LAB URINE ORDERABLES Final Re sult [place] See order comments [place] [address] * (ABNORMAL) Albumin, urine, random (05/19/2024 12:30 [...] ORDERABLES Final Re sult Performing Organization Address [facility] de Phone Number [place] See order comments [place] [address] * Urinalysis (05/19/2024 12:30 PM EDT) Color Urine Yellow See orde r comments Appearance Urine Clear See order comments pH Urine 5.0 5.0 - 9.0 See order comments Glucose Urine Negative Negative mg/dL See order comments Blood, Urine Negative Negative See ord er comments Specific [place] Urine 1.010 1.005 - 1.025 See order comments Protein Urine Negative Neg-Trace mg/dL See order comments Ketones, Urine Negative Negative mg/dL See order comments Nitrite, Urine Negative Negative See o rder comments Leukocyte Esterase Urine Negative Negative See order comments 05/19/2024 12:3 0 PM EDT 05/19/2024 12:30 PM EDT us Anthony Catalan MD LAB URINE ORDERABLES Final Re sult Performing Organization Address [facility] Phone Number [place] See order comments [place] [address] * (ABNORMAL) Creatinine (05/19/2024 12:06 PM EDT) Creatinine Serum 1.75(H) 0.5 - 1.4 mg/dL See order comments eGFR 38 See order comments Comment: Chronic Kidney Disease: ??Estimated GFR < 60 mL/min/1.73m2 Severe Kidney Disease: ??Estimated GFR < 15 mL/min/1.73m2 05/19/2024 12:0 6 PM EDT 05/19/2024 12:06 PM EDT us Anthony Catalan MD LAB BLOOD ORDERABLES Final Re sult Performing Organization Address [facility] de Phone Number [place] See order comments [place] [address] * Calcium (05/19/2024 12:06 PM EDT) Calcium 9.3 8.4 - 10.2 mg/dL See order comments 05/19/2024 12:0 6 PM EDT 05/19/2024 12:06 PM EDT Anthony Catalan MD LAB BLOOD ORDERABLES Final Re sult Performing Organization Address [facility] de Phone Number [place] See order comments [place] [address] * (ABNORMAL) Electrolyte panel (05/19/2024 12:06 PM [...] ORDERABLES Final Re sult Performing Organization Address [facility] de Phone Number [place] See order comments [place] [address] from Last 3 Months Insurance Medicare [facility] Medicare [facility] Care Teams Account Consultant Relationship Specialty Start Date End Date Fransisco Hodges MD [address] [place], [place] PCP - General Internal Medicine 09/29/20
[2024-07-08 07:38] LABS: MANUAL DIFF FLAG NO
[2024-07-08 07:48] LABS: Basophils Percent Auto 0.5 % (0-2); Eosinophils Absolute Auto 0.2 X10*3/uL (0.0-0.4); Eosinophils Percent Auto 3.7 % (0-4); Hematocrit 39.9 % (42.0-52.0); Hemoglobin 13.4 g/dl (14.0-18.0); Imm Gran Abs Auto 0.01 X10*3/uL (0.00-0.03); Imm Gran Pct Auto 0.2 % (0.0-0.4); Lymphocytes Absolute Auto 1.9 X10*3/uL (1.2-4.9); Lymphocytes Percent Auto 33.4 % (20-40); Mean Corpuscular HGB Conc 33.6 g/dl (31.0-36.0); Mean Corpuscular Hemoglobin 28.3 pg (27.0-33.0); Mean Corpuscular Volume 84.2 fL (80.0-98.0); Mean Platelet Volume 8.7 fL (9.4-12.4); Monocytes Absolute Auto 0.5 X10*3/uL (0.1-1.2); Monocytes Percent Auto 9.1 % (2-11); Neutrophils Percent Auto 53.1 % (45-73); Platelet Count 153 X10*3/uL (160-400); Red Blood Count 4.74 X10*6/uL (4.60-5.80); Red Cell Distribution Width 12.5 % (11.0-16.0); White Blood Count 5.7 X10*3/uL (4.8-10.8)
[2024-07-08 08:06] LABS: Appearance Urine Clear; Color Urine Yellow; Glucose Urine UA Negative (Negative); Leukocyte Esterase Urine Negative (Negative); Nitrite Urine Negative (Negative); Urine Blood Negative (Negative); Urine Ketones Trace mg/dL (Negative); Urine Protein Trace mg/dL (Neg-Trace)
[2024-07-08 08:24] LABS: Parathyroid Hormone Intact 116.7 pg/mL (8.7-77.1)
[2024-07-08 08:32] LABS: Albumin Level 4.2 g/dL (3.5-5.0); Alkaline Phosphatase 43 U/L (39-117); Anion Gap 14 (12-20); Aspartate Amino Transferase 23 U/L (5-37); Bilirubin Total 0.6 mg/dL (0.0-1.0); Blood Urea Nitrogen 34 mg/dL (9-16); Calcium 9.3 mg/dL (8.4-10.2); Carbon Dioxide 19 mmol/L (22-29); Chloride 112 mmol/L (96-108); Cholesterol 185 mg/dL (<200); Estimated Glomerular Filt Rate 34; Glucose Fasting 106 mg/dL (60-99); HDL Cholesterol 61 mg/dL (>40); LDL Cholesterol Calculated 95 mg/dL (<100); Potassium 4.3 mmol/L (3.3-5.1); Sodium 141 mmol/L (135-145); Total Protein 6.9 g/dL (6.5-8.0); Triglycerides 148 mg/dL (<150)
[2024-07-08 08:39] LABS: Alanine Aminotransferase 34 U/L (0-40)
[2024-07-08 08:47] LABS: TSH reflex Free T4 2.38 uIU/mL (0.32-4.0)
== END 2024-07-08 07:14 | disposition home or self-care (01) ==
LOC: HO.LAB 07:13
DX: I65.29 Occlusion and stenosis of unspecified carotid artery (principal); I10 Essential (primary) hypertension; N28.9 Disorder of kidney and ureter, unspecified; E78.5 Hyperlipidemia, unspecified
CPT/HCPCS: 36415; 80053; 80061; 81003; 82306; 83970; 84443; 85025

== ENCOUNTER 2024-10-26 07:05 | Outpatient (REF) | payer MEDICARE, OTHER, SELFPAY ==
--- OUTSIDE RECORDS SUMMARY | 2024-10-26 07:10 | XMS_ITS | Clinical Summary ---
Author Organization [facility] [place] Address [address] [facility] [address] [place] [address] Phone Care Team Providers Care Physical Integration Practitioner Name Role Phone Fransisco Hodges MD Primary Care Provider [phone] Allergies Active Allergy Reactions Criticality Noted Date [...] day Do not crush or chew. Active [place]-3 Fatty Acids (Fish Oil) 1000 MG capsule [...] Encounters Date Type Department Care Team Description 09/07/2024 Telephone [facility] [address] [address] Sindhu Wright [place] from Last 3 Months Family History Medical [...] Visit [facility] [address] [place] [address] Anthony Catalan MD [address] [phone] Health Maintenance Due Date Last Done Comments Pneumococcal Vaccine: 50+ Ye ars (1 of 2 - PCV) 1964 Influenza Vaccine (#1) 2024 Hepatitis B Vaccine Aged Out No longe r eligible based on patient's age to complete this topic Insurance Medicare [facility] Medicare [facility] Care Teams Physical Integration Practitioner Relationship Specialty Start Date End Date Fransisco Hodges MD [id number] [place], [place] PCP - General Internal Medicine 09/29/20
--- OUTSIDE RECORDS SUMMARY | 2024-10-26 07:10 | XMS_ITS ---
Author Name Mae Kennedy Address Unknown Organization [place] Care Team Providers Care Data Operations Leader Name Role Phone Unavailable Primary Care Physician Unavailab le History Of Present Illness 1. This is an 79 year old male who is an established patient who is being seen for an evaluation ofskin lesions.Location: body throughoutQuality: asymptomaticSeverity: severeDuration: yearsHistory of Previous Treatments: has not been treatedPertinent History: basal cell skin cancer and melanoma - Biopsy scar located on the left lateral superior chest, removed in 01/22/24Pertinent Negatives: no history of squamous cell carcinoma, no family history of melanoma, and no family history of non-melanoma skin cancerAdditional Visit Reasons: education and counseling about sun exposure, evaluation forsuspicious growths, evaluation for concerning skin lesions on a 3 month basis, evaluation of current nevi, and surveillance against skin cancer recurrences 2. This is an 79 year old male who is following up for hypersensitivity reaction on the arms and trunk. He was seen on September 16, 2024, at which time the following treatment recommendations were given: Plan: :Per pt, it has been ongoing for the past 3 months. Patient reports improvement since ANDRAE. Continue1. Clobetasol 0.05% topical cream x BID, 2 weeks on, 1 week off. Repeat as needed. Recommended:Daily Claritin.FU in 6 weeks for reassessment.Previous:Patient has been using betamethasone cream twice a day without any significant improvement. He also took Prednisone 20 mg for 4-5 days. Denies taking any new medications or using new soaps.Since then, the patient states the hypersensitivity reaction is better.The patient presents for further evaluation and management.The patient followed the treatment plan as directed.Interval History: PATIENT REPORTS IMPROVEMENT TO RASH, BUT THAT IT IS STILL THERE. HAS SLIGHT ITCHING. Allergies, Adverse Reactions, Alerts Substance RxNorm Reaction(s) Severity Status Start Da te niacin 7393 unspecified active Zetia 305216 unspecified active Medications Medication Generic Name RxNorm Strength Strength Unit Route Dose Dose Form Frequency Date Started Date Ended Status Indication Sig clobetasol clobetas ol 901997 0.05 % Topica l cream BID 08/25/19 25 active Appl y 1 gm twic e evans y to rash on back , shou lder s and abdo men twic e evans y x 4 week s. Adult Low Dose Aspirin aspirin 524584 81 mg Oral 1 table t, delay ed relea se (ente tru coate d) QD 04/09/19 18 active amlodipine 547819 5 mg Oral 1 table t QD active cholestyram ine (with sugar) 771568 4 gram Oral 1 powde r in packe t QD active dexamethaso ne dexameth asone 552093 0.75 mg Oral table t 10/24/19 25 active Take 5 tabs PO on day 1, 3 tabs on day 2 and then 1 tab evans y for 18 days . Fish Oil omega-3 fatty acids-vi tamin E 1,000 (120-180) mg Oral 1 capsu le QD active lisinopril- hydrochloro thiazide 751458 20-12.5 mg Oral 1 table t QD active metoprolol succinate 607672 25 mg Oral 1 Table t, Exten ded Relea se 24 hr QD active Pepcid famotidi ne 20 mg Oral 1 table t PRN active prednisone 340324 20 mg Oral table t suspend ed prednisone predniso ne 279587 10 mg Oral table t 06/27/19 25 suspend ed Take 5 pill s x 2 days , then 4 pill s x 2 days , 3 pill s x 2 days , 2 pill s x 2 days , 1 pill x 2 days rosuvastati n 351047 20 mg Oral 1.5 table t QD active RaNITidine HCl NULL 04/09/19 18 suspend ed Problems Problem Code Type Status Date of Diagnosis Date of Resolution Neoplasm of uncertain behavior of skin (disorder) 40906790(S NOMED) Diagnosis active 10/23/2024 Actinic keratosis (disorder) 934953984( SNOMED) Diagnosis active 10/23/2024 Adverse reaction caused by drug (disorder) 99994411(S NOMED) Diagnosis active 10/23/2024 Melanocytic nevus of trunk (disorder) 054825076( SNOMED) Diagnosis active 10/23/2024 Melanocytic nevus of right lower limb (disorder) 2687576294 64961(SNOM ED) Diagnosis active 10/23/2024 Melanocytic nevus of left lower limb (disorder) 5212827428 73799(SNOM ED) Diagnosis active 10/23/2024 Melanocytic nevus of left upper limb (disorder) 7533549737 82828(SNOM ED) Diagnosis active 10/23/2024 Melanocytic nevus of right upper limb (disorder) 494410092( SNOMED) Diagnosis active 10/23/2024 Benign neoplasm of skin of right lower limb (disorder) 3158941683 048749(SNO MED) Diagnosis active 10/23/2024 Hemangioma of skin and subcutaneous tissue (disorder) 674221975( SNOMED) Diagnosis active 10/23/2024 Disorder of pigmentation (disorder) 352521985( SNOMED) Diagnosis active 10/23/2024 Seborrheic keratosis (disorder) 827732358( SNOMED) Diagnosis active 10/23/2024 Patient encounter status (finding) 591998581( SNOMED) Diagnosis active 10/23/2024 Scar conditions and fibrosis of skin (disorder) 989334688( SNOMED) Diagnosis active 10/23/2024 Adverse reaction caused by drug (disorder) 18716689(S NOMED) Diagnosis active 09/16/2024 Adverse reaction caused by drug (disorder) 98184689(S NOMED) Diagnosis active 08/24/2024 Adverse reaction caused by drug (disorder) 31656434(S NOMED) Diagnosis active 06/26/2024 Disorder of pigmentation (disorder) 176185997( SNOMED) Diagnosis active 06/26/2024 Melanocytic nevus of trunk (disorder) 719945956( SNOMED) Diagnosis active 06/26/2024 Melanocytic nevus of right lower limb (disorder) 5142493179 08788(SNOM ED) Diagnosis active 06/26/2024 Melanocytic nevus of left lower limb (disorder) 6949517039 21509(SNOM ED) Diagnosis active 06/26/2024 Melanocytic nevus of left upper limb (disorder) 6248262598 00538(SNOM ED) Diagnosis active 06/26/2024 Melanocytic nevus of right upper limb (disorder) 450086126( SNOMED) Diagnosis active 06/26/2024 Hemangioma of skin and subcutaneous tissue (disorder) 368170397( SNOMED) Diagnosis active 06/26/2024 Seborrheic keratosis (disorder) 752706038( SNOMED) Diagnosis active 06/26/2024 History of melanoma in situ of skin (situation) 6643056838 106(SNOMED ) Diagnosis active 06/26/2024 History of malignant neoplasm of skin (situation) 862014652( SNOMED) Diagnosis active 06/26/2024 Actinic keratosis (disorder) ( SNOMED) Diagnosis active 03/25/2024 Melanocytic nevus of right lower limb (disorder) 5692881657 62692(SNOM ED) Diagnosis active 03/25/2024 Disorder of pigmentation (disorder) 836948670( SNOMED) Diagnosis active 03/25/2024 Melanocytic nevus of trunk (disorder) 476769027( SNOMED) Diagnosis active 03/25/2024 Melanocytic nevus of left upper limb (disorder) 7342553118 38983(SNOM ED) Diagnosis active 03/25/2024 Melanocytic nevus of left lower limb (disorder) 1542775044 43294(SNOM ED) Diagnosis active 03/25/2024 Melanocytic nevus of right upper limb (disorder) 018001935( SNOMED) Diagnosis active 03/25/2024 Hemangioma of skin and subcutaneous tissue (disorder) 876022631( SNOMED) Diagnosis active 03/25/2024 Seborrheic keratosis (disorder) 608285403( SNOMED) Diagnosis active 03/25/2024 History of melanoma in situ of skin (situation) 1621518888 106(SNOMED ) Diagnosis active 03/25/2024 History of malignant neoplasm of skin (situation) 892173673( SNOMED) Diagnosis active 03/25/2024 Surgical follow-up (finding) 855165475( SNOMED) Diagnosis active 02/05/2024 Melanoma in situ of trunk (disorder) 245527865( SNOMED) Diagnosis active 01/22/2024 Neoplasm of uncertain behavior of skin (disorder) 87197018(S NOMED) Diagnosis active 12/06/2023 Actinic keratosis (disorder) ( SNOMED) Diagnosis active 12/06/2023 Seborrheic keratosis (disorder) 741397096( SNOMED) Diagnosis active 12/06/2023 History of malignant neoplasm of skin (situation) 453401954( SNOMED) Diagnosis active 12/06/2023 Personal history of other malignant neoplasm of skin Z85.828(IC D-10) Diagnosis active 06/01/2019 Actinic keratosis L57.0(ICD- 10) Diagnosis active 06/01/2019 Other skin changes due to chronic exposure to nonionizing radiation L57.8(ICD- 10) Diagnosis active 06/01/2019 Other melanin hyperpigmentation L81.4(ICD- 10) Diagnosis active 06/01/2019 Other seborrheic keratosis L82.1(ICD- 10) Diagnosis active 06/01/2019 Melanocytic nevi, unspecified D22.9(ICD- 10) Diagnosis active 06/01/2019 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 Office phonenumber is [phone]. Office fax number is [phone]. 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) [place] 10/23/2024 13:00:00 [facility] [id number] Reason For Referral No data Procedures Procedure Date Destruction of premalignant skin lesion (procedure) 10/23/2024 12:00 am [place] Shave biopsy (procedure) 10/23/2024 12:0 0 am [place] Destruction of premalignant skin lesion (procedure) 03/25/2024 12:00 am UTC Removal of suture (procedure) 02/05/2024 12:00 am UTC Excision (procedure) 01/22/2024 12:00 am [place] Shave biopsy (procedure) 12/06/2023 12:0 0 am [place] Destruction of premalignant skin lesion (procedure) 12/06/2023 12:00 am UTC Documentation of past medical history (p rocedure) Documentation of past medical history (p rocedure) Documentation of past medical history (p rocedure) Documentation of past medical history (p rocedure) Documentation of past medical history (p rocedure) Documentation of past medical history (p rocedure) Documentation of past medical history (p rocedure) Documentation of past medical history (p rocedure) Documentation of past medical history (p rocedure) Documentation of past medical history (p rocedure) null Review Of Systems Provider reviewed on Oct 23, 2024.A complete review of systems was performed.No Problems With Healing, No Problems With Scarring (hypertrophic Or Keloid), No Problems With Bleeding, No Immunosuppression, No Hay Fever, No Chest Pain, No Fever Or Chills, No Night Sweats, No Unintentional Weight Loss,No Thyroid Problems, No Sore Throat, No Blurry Vision, No Abdominal Pain, No Bloody Stool, No Bloody Urine, No Joint Aches, No Muscle Weakness, No Neck Stiffness, No Headaches, No Seizures, No Shortness Of Breath, No Wheezing, No Anxiety, And No Depression. Assessment 1.Neoplasm of Uncertain BehaviorBiopsy by Shave Method: left inferior lateral lower back.2.Actinic KeratosesCounselingLiquid Nitrogen: left central frontal scalp; left lateral frontal scalp; right superior parietal scalp; mid-frontal scalp; right lateral frontal scalp; right central parietal scalp;right medial frontal scalp; mid-frontal scalp; left medial frontal scalp; left medial frontal scalp; left central malar cheek; right inferior helix; Number of freeze-thaw Cycles - 2 freeze-thaw cycles; Duration of freeze thaw-cycle (seconds) - 10.3.Hypersensitivity ReactionCounselingPrescription Medication Management: Plan - :Patient reports improvement since ANDRAE; however, continues to experience intermittent flare-ups. Per pt, it has been ongoing for the past 3 months. Discussed starting phototherapy vs short course of oral steroids. Rx today:1. Dexamethasone 0.75 mg. Take 5 tabs PO on day 1, 3 tabs on day 2 and then 1 tab daily for 18 days.Continue1. Clobetasol 0.05% topical cream x BID,2 weeks on, 1 week off. Repeat as needed. Recommended:Daily Claritin.Future considerations:Photo therapyIMKFU in 6 weeks for reassessment.Previous:Patient has been using betamethasone cream twice a day without any significant improvement. He also took Prednisone 20 mg for 4-5 days. Denies taking any new medications or using new soaps.;.Prescription: dexamethasone 0.75 mg tablet PO4.Benign Appearing NeviCounseling5.Acral NevusCounseling6.DermatofibromaCounseling7.Ruby AngiomasReassurance8.Lenti ginesSunscreen Recommendations9.Seborrheic HtkfftqhnCtrtzvysbw97.Skin JfgevpeddDgpovciwvu72.Scar - See historical summaryCounseling Plan of Care Future visit for 12/04/2024 - Follow up in 6 weeks for: Focused Visit - 15 minutes. Other Instructions: FU Hypersensitivity reaction. Other Instructions: FU Hypersensitivity reaction. Code Detail Instructions 069208 dexamethasone 0.75 mg tablet Panchito e 5 tabs PO on day 1, 3 tabs on day 2 and then 1 tab daily for 18 days. 497984 clobetasol 0.05 % topical cream Apply 1 gm twice daily to rash on back, shoulders and abdomen twice daily x 4 weeks. 938228 prednisone 10 mg tablet Take 5 p ills x 2 days, then 4 pills x 2 days, 3 pills x 2 days, 2 pills x 2 days, 1 pill x 2 days Instructions * I counseled the patient regarding the following:Skin Care: Sun protective clothing and broad spectrum sunscreen can prevent the formation of Actinic Keratoses. AKs can resolve with cryotherapy, photodynamic therapy, imiquimod, topical 5-FU.Expectations: Actinic Keratoses are precancerous proliferations that occur within sun damaged skin. If untreated, a small subset of AKs can develop into Squamous Cell Carcinoma.Contact Office if: If AKs fail to resolve despite treatment, or if you develop a side effect from therapy, such as unbearable crusting, scabbing, redness and tenderness.I recommendedthe following: Broad Spectrum Sunscreen SPF 30+ * I counseled the patient regarding the following:Skin care: Patient instructed to apply emollients to rash and discontinue any unnecessary medications. Pt may use Sarna Lotion or antihistamines for pruritus.Expectations: Hypersensitivity reactions may result from a medication, a viral illness, or even from an insect bite. Often, it is difficult to determine the cause. Rashes take several weeks to resolve and may worsen before they improve.Contact office if: Hypersensitivity reaction fails to improve despite weeks of treatment, or if patient develops fevers, blisters, or mucosal involvement.I recommended the following: MoisturizersTopical Steroids * I counseled the patient regarding the following:Instructions: Monthly self- skin checks to monitor for any changes in moles are recommended.Expectations: Benign Nevi are pigmented nests of cells within the skin. No treatment is necessary.Contact Office if: Any moles change in size, shape or color; itch, burn or bleed. * I counseled the patient regarding the following:Instructions: Monthly self- skin checks to monitor for any changes in moles are recommended.Contact Office if: Any moles change in size, shape or color;itch, burn or bleed. * I counseled the patient regarding the following:Skin care: Dermatofibromas are benign. They should be surgically removed if symptomatic or if they grow.Expectations: Dermatofibromas are stable scar-like nodules, usually located on the lower extremities. * I counseled the patient regarding the following:Skin Care: Seborrheic Keratoses are benign. No treatment is necessary.Expectations: Seborrheic Keratoses are benign warty growths. Patients get more ofthem as they age. * I counseled the patient regarding the following:Sun screen (SPF 30 or greater) should be applied during peak UV exposure (between 10am and 2pm) and reapplied after exercise or swimming.The ABCDEs of melanoma were reviewed with the patient, and the importance of monthly self-examination of moles was emphasized. Should any moles change in shape or color, or itch, bleed or burn, pt will contact our office for evaluation sooner then their interval appointment.I recommended the following: Broad Spectrum Sunscreen SPF 30+Self- Skin Exams * I counseled the patient regarding the following:Skin Care: Patients with a history of melanoma should wear broad spectrum sunscreen and sun protective clothing.Expectations: Scars from excisional sites of melanoma should be monitored for any recurrences. Monthly self-skin checks should be performedto monitor for any moles that change in size, shape or color, itch burn or bleed.Contact Office if:Patient notices any new or changing moles, develops constitutional symptoms or develops new lesionswithin or around the previous melanoma scar.I recommended the following: Broad Spectrum Sunscreen SPF 30+Self-Skin Exams Social History Code Activity Start Date End Date 3701841 (SNOMED) Former smoker Sex male Sexual orientation Don't Know Gender identity Unspecified Vital Signs No data
== END 2024-10-26 07:06 | disposition home or self-care (01) ==
LOC: HO.LAB 07:05
DX: I10 Essential (primary) hypertension (principal); I65.29 Occlusion and stenosis of unspecified carotid artery; N28.9 Disorder of kidney and ureter, unspecified; E78.5 Hyperlipidemia, unspecified
CPT/HCPCS: 36415; 82947

== ENCOUNTER 2024-10-30 08:20 | Outpatient (AMB) | payer MEDICARE, OTHER, SELFPAY ==
--- NOTE | 2024-10-30 08:24 | A.OFFPC_ITS ---
Vital Signs 10/30/24 08:25 Height 5 ft 8 in Weight 161 lb 2 oz BMI 24.5 BP 110/68 Blood Pressure Location Lt brachial Position Sitting Pulse 57 Pulse Source Pulse Oximeter Temp 96.9 F Temp Source Temporal Artery Scan Pulse Oximetry (%) 97 Oxygen Delivery Method Room Air Intake Visit Reasons: 4 month f/u Intake Note: Patient is here to follow up on HTN, HLD. 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 Required: No Functional Manager: Not Required per policy Accompanied by: Self / Same As Patient Allergies ezetimibe (Zetia) Adverse Reaction (Unknown, Verified 10/30/24 12:15) muscle pain niacin Adverse Reaction (Unknown, Verified 10/30/24 12:15) flushing Medication List - Last Reconciled 10/30/24 by SAVANNAH Martinez amlodipine 5 mg PO DAILY aspirin (Adult Low Dose Aspirin) 81 mg PO DAILY betamethasone dipropionate 0.05% 1 appl topical BID 14 days cholecalciferol (vitamin D3) 25 mcg PO DAILY 90 days cholestyramine (with sugar) 4 gram 4 grams PO DAILY lisinopril-hydrochlorothiazide 20-12.5 mg 1 tab PO BID metoprolol succinate ER 25 mg PO DAILY omega-3 fatty acids 1,000 mg PO DAILY rosuvastatin 30 mg (1.5 x 20 mg) PO DAILY Tobacco use date assessed: 10/30/24 Fall risk assessment: No Falls in past year Last assessed Fall Risk: 10/30/24 Dental Screening Dental Screen Date: 07/03/24 HPI 4 month f/u HPI Details Patient is a 79-year-old male presenting for follow up appointment. Patient continues to be on amlodipine 5 mg, lisinopril-hydrochlorothiazide 20- 12.5 mg b.i.d., metoprolol succinate ER 25 mg daily for blood pressure control. Blood pressure was 110/68 today in office. The patient reports compliance with medication and dietary modifications. Patient also has been monitored for high cholesterol for which he is on rosuvastatin 30 mg daily. The patient is on a vitamin D3 supplement for deficiency and he continues the baby has been daily for carotid stenosis. Patient follow up with renal every six-month for renal insufficiency and he sees Dermatology for recurrent allergic contact dermatitis. Patient denies any chest pain, shortness of breath, heart palpitation or dizziness. Denies any change in bowel habits or abdominal pain or any urinary symptoms. Labs done in June reviewed with the patient. [facility] Medical History Allergic contact dermatitis COVID-19 Hypertension Hyperlipidemia Surgical History H/O carotid endarterectomy Family History Father Heart problem Mother Heart problem Brother No problems noted. Son No problems noted. Daughter No problems noted. Daughter No problems noted. Daughter No problems noted. Social History Housing: House Alcohol intake: current Alcohol intake frequency: a few times a week Patient Tobacco Use Status: Former Tobacco user Tobacco use type: Cigarette e-Cigarette/Vaping Use: Never Used Second Hand Smoke Exposure: Yes service: No Current occupational status: retired Cognitive needs: No Hearing needs: No Vision needs: Yes (Reading glasses) Questionnaire PHQ-9 Over the last 2 weeks, how often have you been bothered by any of the following problems? 1. Little interest or pleasure in doing things: not at all 2. Feeling down, depressed, or hopeless: not at all 3. Trouble falling or staying asleep, or sleeping too much: not at all 4. Feeling tired or having little energy: not at all 5. Poor appetite or overeating: not at all 6. Feeling bad about yourself - or that you are a failure or have let yourself or your family down: not at all 7. Trouble concentrating on things, such as reading the newspaper or watching television: not at all 8. Moving or speaking so slowly that other people could have noticed. Or the opposite - being so fidgety or restless that you have been moving around a lot more than usual: not at all 9. Thoughts that you would be better off or of hurting yourself in some way: not at all Total score: 0 Depression Screening Interpretation: Negative Depression Screening Done: Yes Source: Developed by Drs. Denys Suero, Francia Shelton, Robinson Phillips and colleagues, with an educational ramiro from [employer]. Thrive Questionnaire Date Thrive assessed: 10/25/24 I am a: Patient What is your living situation today?: I have a steady place to live Within the past 12 months, did the food you bought not last and you didn't have the money to get more?: Never true Within the past 12 months, did you worry whether your food would run out before you got money to buy more?: Never true Do you have trouble paying for medicines?: No Do you have trouble getting transportation to medical appointments?: No Do you have trouble paying your heating and electricity bill?: No Do you have trouble taking care of your child, family member or friend?: No Do you have trouble with day-to-day activities such as bathing, preparing meals, shopping, managing finances, etc.?: No Are you currently unemployed and looking for a job?: No Are you interested in more education?: No Please select the resources that you would like help with: None Currently or been in a relationship where the following occur: No concerns reported THRIVE Score: 0 AUDIT C Alcohol Use Questionnaire (AUDIT-C) 1. How often do you have a drink containing alcohol?: 2-3 times a week Total Score: 3 GRACE-7 AMB Questionnaire GRACE-7 Date GRACE - 7 assessed: 07/03/24 Feeling nervous, anxious, or on edge: 0 = Not at all Not being able to stop or control worryin = Not at all Worrying too much about different things: 0 = Not at all Trouble relaxin = Not at all Being so restless that it is hard to sit still: 0 = Not at all Becoming easily annoyed or irritable: 0 = Not at all Feeling afraid as if something awful might happen: 0 = Not at all Total GRACE-7 score (0-4 normal; 5-9 mild; 10-14 moderate; 15-21 severe): 0 Source: Developed by Drs. Denys Suero, Francia Shelton, Robinson Phillips and colleagues, with an educational ramiro from [employer]. Review of Systems Const Denies body aches, Denies chills, Denies fever(s), Denies headache(s) and Denies poor appetite Eyes Reports no additional complaints ENT Denies dysphagia, Denies dizziness, Denies headache(s) and Denies odynophagia Card Denies chest pain, Denies syncope, Denies edema, Denies irregular heart rhythm, Denies lightheadedness and Denies dyspnea Resp Denies cough and Denies dyspnea GI Denies abdominal pain, Denies constipation, Denies dysphagia, Denies diarrhea, Denies nausea, Denies odynophagia and Denies vomiting Reports no additional complaints Musc Denies no additional complaints and Denies abnormal gait Skin/Breast Reports other (Recurrent rash to the torso, shoulder, and back-resolved) Neuro Denies abnormal gait, Denies dizziness, Denies syncope and Denies headache(s) Psych Reports no additional complaints Physical exam (Primary Care) Vital Signs: Last Vital Signs Temp 96.9 F 10/30/24 08:25 Pulse 57 10/30/24 08:25 BP 110/68 10/30/24 08:25 Pulse Ox 97 10/30/24 08:25 Oxygen Delivery Method Room Air 10/30/24 08:25 BMI result Body Mass Index 24.5 Tobacco/Smoking Status: Tobacco use Status Tobacco use date assessed 10/30/24 10/30/24 08:27 Patient Tobacco Use Status Former Tobacco user 10/30/24 08:27 Tobacco use type Cigarette 10/30/24 08:27 e-Cigarette/Vaping Use Never Used 10/30/24 08:27 PHQ-9: PHQ-9 Score PHQ-9: Total score 0 10/30/24 09:41 Depression Screening Interpretation: Negative Thrive Assessment: Date of Thrive Assessment Date Thrive assessed 10/25/24 10/30/24 08:27 Currently or been in a relationship where the following occur: No concerns reported Const General: cooperative, healthy appearing, comfortable and no acute distress Orientation/consciousness: patient oriented x3 HENMT Head: Yes normocephalic Ears: hearing grossly normal bilaterally General nose exam: Normal external nose present Eyes General: appearance normal, both eyes and all related structures Conjunctivae: conjunctivae normal Neck Neck: Yes full ROM and Yes no lymphadenopathy Resp Effort & Inspection: normal respiratory effort Auscultation: clear to auscultation bilaterally, no crackles, no rales, no rhonchi and no wheezes Cardio Rate: regular rate Rhythm: regular rhythm GI Palpation (GI): Soft to palpation and nontender Auscultation: normal bowel sounds General: Yes no CVA tenderness Back/Spine/Pelvis Back: no CVA tenderness Skin General skin exam: other (Recurrent rashes resolved-he was treated with prednisone tapered) Neuro General: patient oriented x3 Gait exam (Neuro): Normal gait present Extrem General: Yes normal to inspection, Yes full ROM and No edema Psych Affect: normal affect Attitude: cooperative Insight: Good insight present (Psych) Judgement: Good judgement present (Psych) Results Reviewed Results Reviewed: Laboratory Tests 05/19/24 05/19/24 07/08/24 12:03 12:06 07:33 Sodium 141 Potassium 4.4 Chloride 113 H Carbon Dioxide 19 L Anion Gap 13 BUN Creatinine 1.75 H Estimated GFR 38 Fasting Glucose Calcium 9.3 Total Bilirubin AST ALT Alkaline Phosphatase Total Protein Albumin Triglycerides Cholesterol LDL Cholesterol, Calc HDL Cholesterol 25-OH Vitamin D Total TSH PTH Intact Urine Color Yellow Yellow Urine Appearance Clear Clear Urine pH 5.0 5.0 Ur Specific [place] 1.010 1.020 Urine Protein Negative Trace Urine Glucose (UA) Negative Negative Urine Ketones Negative Trace Urine Blood Negative Negative Urine Nitrite Negative Negative Ur Leukocyte Esterase Negative Negative U Random Total Protein 8 Urine Creatinine 95.21 Urine Microalbumin 31.0 Microalb/Creat Ratio 32.5 H Protein/Creatinin Ratio 0.08 07/08/24 07:37 Sodium 141 Potassium 4.3 Chloride 112 H Carbon Dioxide 19 L Anion Gap 14 BUN 34 H Creatinine 1.90 H Estimated GFR 34 Fasting Glucose 106 H Calcium 9.3 Total Bilirubin 0.6 AST 23 ALT 34 Alkaline Phosphatase 43 Total Protein 6.9 Albumin 4.2 Triglycerides 148 Cholesterol 185 LDL Cholesterol, Calc 95 HDL Cholesterol 61 25-OH Vitamin D Total 18.0 L TSH 2.38 PTH Intact 116.7 H Urine Color Urine Appearance Urine pH Ur Specific [place] Urine Protein Urine Glucose (UA) Urine Ketones Urine Blood Urine Nitrite Ur Leukocyte Esterase U Random Total Protein Urine Creatinine Urine Microalbumin Microalb/Creat Ratio Protein/Creatinin Ratio Coding Level of Care Code Est Pt Level 3 (69361) Diagnoses Hypertension secondary to other renal disorders I15.1 Hypertension type: secondary to other renal disorders Stenosis of left carotid artery I65.22 Laterality: left 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 Hyperlipidemia type: pure hypertriglyceridemia Allergic contact dermatitis, unspecified trigger L23.9 Contact dermatitis trigger: unspecified trigger Renal insufficiency syndrome N28.9 Time Spent (min) 33 Assessment & Plan Assessment & Plan (1) Hypertension: Code(s): I10 - Essential (primary) hypertension Category: Medical Qualifiers: Hypertension type: secondary to other renal disorders Qualified Code(s): I15.1 - Hypertension secondary to other renal disorders Plan: Her blood pressure within goal Continue amlodipine 5 mg daily, lisinopril-hydrochlorothiazide 20-12.5 mg 1 tab b.i.d., metoprolol succinate ER 25 mg daily Reports medication compliance. Reinforced low-salt diet (2) Carotid stenosis: Code(s): I65.29 - Occlusion and stenosis of unspecified carotid artery Category: Medical Qualifiers: Laterality: left Qualified Code(s): I65.22 - Occlusion and stenosis of left carotid artery Plan: The patient had a carotid endarterectomy Continue rosuvastatin 20 mg daily and aspirin 81 mg daily (3) Hyperlipidemia: Code(s): E78.5 - Hyperlipidemia, unspecified Category: Medical Qualifiers: Hyperlipidemia type: pure hypertriglyceridemia Qualified Code(s): E78.1 - Pure hyperglyceridemia Plan: TRI 148, t-chol 185, LDL 95, HDL 61 Discussed lifestyle modifications including dietary changes and physical activity Continue rosuvastatin 30 mg daily We will recheck lipid panel in six-month (4) Allergic contact dermatitis: Code(s): L23.9 - Allergic contact dermatitis, unspecified cause Category: Medical Qualifiers: Contact dermatitis trigger: unspecified trigger Qualified Code(s): L23.9 - Allergic contact dermatitis, unspecified cause Plan: Recurrent rash to the torso, shoulder, back resolved. Patient was using betamethasone dipropionate 0.05% topical b.i.d.. Had run out of the cream and the rashes returned, on his prior visit the patient reports that he had a upcoming appointment with Dermatology. Patient was placed on prednisone tapered by Dermatology with positive effects. 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 Creatinine peaked to 2.27 back in 2020-improved after NSAIDs DC and has been stable. Encouraged adequate hydration Orders: Orders Comprehensive [place]. Panel Fast 6 Months E78.1 - Pure hyperglyceridemia, I15.1 - Hypertension secondary to other renal disorders, I65.22 - Occlusion and stenosis of left carotid artery, L23.9 - Allergic contact dermatitis, unspecified cause, N28.9 - Disorder of kidney and ureter, unspecified Lipid Panel 6 Months E78.1 - Pure hyperglyceridemia, I15.1 - Hypertension secondary to other renal disorders, I65.22 - Occlusion and stenosis of left carotid artery, L23.9 - Allergic contact dermatitis, unspecified cause, N28.9 - Disorder of kidney and ureter, unspecified Vitamin D 25-OH Total 6 Months E78.1 - Pure hyperglyceridemia, I15.1 - Hypertension secondary to other renal disorders, I65.22 - Occlusion and stenosis of left carotid artery, L23.9 - Allergic contact dermatitis, unspecified cause, N28.9 - Disorder of kidney and ureter, unspecified Complete Blood Count Auto Diff 6 Months E78.1 - Pure hyperglyceridemia, I15.1 - Hypertension secondary to other renal disorders, I65.22 - Occlusion and stenosis of left carotid artery, L23.9 - Allergic contact dermatitis, unspecified cause, N28.9 - Disorder of kidney and ureter, unspecified UA CC w/rflx Micro + Cult 6 Months E78.1 - Pure hyperglyceridemia, I15.1 - Hypertension secondary to other renal disorders, I65.22 - Occlusion and stenosis of left carotid artery, L23.9 - Allergic contact dermatitis, unspecified cause, N28.9 - Disorder of kidney and ureter, unspecified TSH reflex Free T4 6 Months E78.1 - Pure hyperglyceridemia, I15.1 - Hypertension secondary to other renal disorders, I65.22 - Occlusion and stenosis of left carotid artery, L23.9 - Allergic contact dermatitis, unspecified cause, N28.9 - Disorder of kidney and ureter, unspecified
[2024-10-30 08:25] VITALS: BP 110/68; PULSE 57; TEMP 36.1; O2SAT 97; BMI 24.5
--- OUTSIDE RECORDS SUMMARY | 2024-10-30 08:34 | XMS_ITS | Clinical Summary ---
Author Organization [facility] Address [address] [facility] [address] [place] [address] Phone Care Team Providers Care Band Salvager Name Role Phone Fransisco Hodges MD Primary Care Provider [phone] Allergies Active Allergy Reactions Criticality Noted Date [...] day Do not crush or chew. Active [place]-3 Fatty Acids (Fish Oil) 1000 MG capsule [...] Telephone [facility] [address] [phone] Sindhu Wright MA from Last 3 Months [...] Visit [facility] [address] [place] [address] Anthony Catalan MD [address] [phone] Health Maintenance Due Date Last Done Comments Pneumococcal Vaccine: 50+ Ye ars (1 of 2 - PCV) 1964 Influenza Vaccine (#1) 2024 Hepatitis B Vaccine Aged Out No longe r eligible based on patient's age to complete this topic Insurance Medicare [facility] Medicare [facility] Care Teams Band Salvager Relationship Specialty Start Date End Date Fransisco Hodges MD [id number] [place], [place] PCP - General Internal Medicine 09/29/20
== END 2024-10-30 08:48 | disposition home or self-care (01) ==
LOC: HO.HMCH 08:21
DX: I15.1 Hypertension secondary to other renal disorders (principal); I65.22 Occlusion and stenosis of left carotid artery; E78.1 Pure hyperglyceridemia; L23.9 Allergic contact dermatitis, unspecified cause; N28.9 Disorder of kidney and ureter, unspecified

== ENCOUNTER → 2024-10-30 08:20 | Outpatient (BNVA) | payer MEDICARE, OTHER, SELFPAY | DX: I15.1 Hypertension secondary to other renal disorders (principal); I65.22 Occlusion and stenosis of left carotid artery; E78.1 Pure hyperglyceridemia; L23.9 Allergic contact dermatitis, unspecified cause; N28.9 Disorder of kidney and ureter, unspecified | CPT/HCPCS: 99212 ==

== ENCOUNTER 2024-11-23 07:22 | Outpatient (REF) | payer MEDICARE, OTHER, SELFPAY ==
--- OUTSIDE RECORDS SUMMARY | 2024-11-23 07:25 | XMS_ITS | Clinical Summary ---
Author Organization [facility] Address [address] [facility] [address] [place] [address] Phone Care Team Providers Care Radiologic Technologist Chief Name Role Phone Fransisco Hodges MD Primary Care Provider [phone] Allergies Active Allergy Reactions Criticality Noted Date [...] day Do not crush or chew. Active [place]-3 Fatty Acids (Fish Oil) 1000 MG capsule [...] [facility] [address] [phone] Sindhu Wright MA from Last 3 Months [...] Visit [facility] [address] [place] [address] Anthony Catalan MD [address] [phone] Health Maintenance Due Date Last Done Comments Pneumococcal Vaccine: 50+ Ye ars (1 of 2 - PCV) 1964 Influenza Vaccine (#1) 2024 Hepatitis B Vaccine Aged Out No longe r eligible based on patient's age to complete this topic Insurance Medicare [facility] Medicare [facility] Care Teams Radiologic Technologist Chief Relationship Specialty Start Date End Date Fransisco Hodges MD [id number] [place], [place] PCP - General Internal Medicine 09/29/20
[2024-11-23 07:45] LABS: MANUAL DIFF FLAG NO
[2024-11-23 08:31] LABS: Hematocrit 42.3 % (42.0-52.0); Hemoglobin 14.0 g/dl (14.0-18.0); Imm Gran Abs Auto 0.01 X10*3/uL (0.00-0.03); Imm Gran Pct Auto 0.2 % (0.0-0.4); Lymphocytes Absolute Auto 2.0 X10*3/uL (1.2-4.9); Mean Corpuscular HGB Conc 33.1 g/dl (31.0-36.0); Mean Corpuscular Hemoglobin 28.6 pg (27.0-33.0); Mean Corpuscular Volume 86.3 fL (80.0-98.0); NRBC Abs Auto 0.000 X10*3/uL (0.0-0.012); NRBC Pct Auto 0.0 /100WBC (0.0-0.2); Platelet Count 171 X10*3/uL (160-400); Red Blood Count 4.90 X10*6/uL (4.60-5.80); White Blood Count 5.1 X10*3/uL (4.8-10.8)
[2024-11-23 08:54] LABS: Parathyroid Hormone Intact 83.4 pg/mL (8.7-77.1)
[2024-11-23 08:55] LABS: Albumin Level 4.3 g/dL (3.5-5.0); Anion Gap 14 (12-20); Blood Urea Nitrogen 40 mg/dL (9-16); Calcium 9.3 mg/dL (8.4-10.2); Carbon Dioxide 23 mmol/L (22-29); Chloride 111 mmol/L (96-108); Estimated Glomerular Filt Rate 36; Magnesium 2.1 mg/dL (1.6-2.6); Potassium 4.6 mmol/L (3.3-5.1); Sodium 143 mmol/L (135-145)
[2024-11-23 09:16] LABS: Appearance Urine Clear; Glucose Urine UA Negative (Negative); PH 5.5 (5.0-9.0); Specific Gravity - Urine 1.020 (1.005-1.025)
[2024-11-23 10:18] LABS: Microalbum/Creatinine Ratio Ur 30.5 ug/mg cr (<30); Protein/Creatinine Ratio, Ur 0.08 (<0.2); Total Protein Urine Random 15 mg/dL (<12)
== END 2024-11-23 07:23 | disposition home or self-care (01) ==
LOC: HO.LAB 07:22
PROVIDERS: Visit Provider Internal Medicine Nephrology
DX: N18.32 Chronic kidney disease, stage 3b (principal); N25.0 Renal osteodystrophy
CPT/HCPCS: 36415; 80051; 81001; 82040; 82043; 82306; 82310; 82565; 82570; 83735; 83970; 84100; 84156; 84520; 85025; 87086